=== PATIENT | female | born 1960 | race Caucasian/White ===

== ENCOUNTER → 2018-01-05 14:08 | Outpatient (CLI) | payer MEDICARE, MEDICAID, SELFPAY ==
--- NOTE | 2018-01-05 14:11 | DI.RAD.S_ITS ---
PROCEDURE: XR CHEST 2V INDICATIONS: R/O pulmonary pathology TECHNIQUE: 2 views of the chest were acquired. COMPARISON: [facility], CR, XR CHEST 2 VIEWS, 09/19/2017, 13:42. FINDINGS: Surgical changes and devices: None. Lungs and pleura: No pleural effusions or pneumothorax. Lungs are clear. Mediastinum: Mediastinal contours are normal. Heart size is normal. Bones and chest wall: No suspicious bony abnormalities. Thoracic spondylosis. Soft tissues appear unremarkable. IMPRESSION: No acute cardiopulmonary abnormality Dictated by: Farhan Singh M.D. on 01/05/2018 at 14:53 Approved by: Farhan Singh M.D. on 01/05/2018 at 14:54
== END ==
PROVIDERS: PCP Family Medicine; Visit Provider Physician Assistant
DX: R07.9 Chest pain, unspecified (principal)
CPT/HCPCS: 71046

== ENCOUNTER → 2018-03-16 11:42 | Outpatient (CLI) | payer MEDICARE, MEDICAID, SELFPAY ==
--- NOTE | 2018-03-16 | DI.MG.S_ITS ---
BILATERAL DIGITAL SCREENING MAMMOGRAM 3D/2D WITH CAD: 03/16/2018 CLINICAL: Routine screening. Family history of breast cancer. Comparison is made to exams dated: 01/21/2017 mammogram, 07/25/2015 mammogram, and 07/24/2014 mammogram - [facility]. The tissue of both breasts is heterogeneously dense. This may lower the sensitivity of mammography. Current study was also evaluated with a Computer Aided Detection (CAD) system. No significant masses, calcifications, or other findings are seen in either breast. There has been no significant interval change. IMPRESSION: NEGATIVE There is no mammographic evidence of malignancy. A 1 year screening mammogram is recommended.(03/17/2019) This exam was interpreted at Station ID: [id number]. NOTE: For mammograms, a report in lay terms will be sent to the patient. Approximately 15% of breast malignancies will not be visualized mammographically. In the management of a palpable breast mass, a negative mammogram must not discourage biopsy of a clinically suspicious lesion. Electronically Signed By: Temo vigil/marquita:03/16/2018 17:00:55 letter sent: Normal Exam ACR BI-RADS Category 1: Negative 3341F
== END ==
PROVIDERS: PCP Family Medicine; Visit Provider Family Medicine
DX: Z12.31 Encounter for screening mammogram for malignant neoplasm of breast (principal); Z80.3 Family history of malignant neoplasm of breast
CPT/HCPCS: 77063; 77067

== ENCOUNTER 2018-07-29 11:49 | Emergency (ER) | payer MEDICARE, MEDICAID, SELFPAY ==
[2018-07-29 11:51] VITALS: BP 153/95; PULSE 99; RESP 22; TEMP 36.4; O2SAT 100
--- NOTE | 2018-07-29 12:04 | DI.RAD.S_ITS ---
PROCEDURE: XR CHEST 2V INDICATIONS: pain right side, smoker, wt loss, no trauma ED WR TECHNIQUE: 2 views of the chest were acquired. COMPARISON: Located [facility], CR, XR CHEST 2V, 01/05/2018, 14:12. FINDINGS: Surgical changes and devices: None. Lungs and pleura: Lungs are clear. No pleural effusions or pneumothorax. Mediastinum: Mediastinal contours are normal. Heart size is normal. Bones and chest wall: No suspicious bony abnormalities. Soft tissues appear unremarkable. IMPRESSION: Normal chest. Dictated by: Mita Tipton M.D. on 07/29/2018 at 13:59 Approved by: Mita Tipton M.D. on 07/29/2018 at 13:59
--- NOTE | 2018-07-29 14:51 | ED.CHESTPAIN ---
HPI - Chest Pain <EMERITA Samayoa - Last Filed: 07/29/18 18:11> General Chief Complaint: Chest Pain Stated Complaint: right lung pain for 9 days Time Seen by Provider: 07/29/18 14:34 Source: patient Mode of arrival: ambulatory Limitations: no limitations History of Present Illness HPI narrative: Patient is a on 57-year-old female active smoker who presents with a chief complaint of right lung pain x9 days. She states that her chest hurts where her right ribs meet her sternum when she takes a deep breath and when she is coughing. She has had a productive cough ongoing times 3-4 weeks. She has tried ibuprofen once for the pain in her ribs when she takes a deep breath. She denies any fevers, nausea vomiting or diarrhea. She does take Humira for rheumatoid arthritis. Related Data Home Medications Medication Instructions Recorded Confirmed adalimumab 40 mg/0.8 mL 40 mg SUBCUT Q2W 11/21/17 07/29/18 subcutaneous syringe kit acyclovir [Zovirax] 200 mg PO 5XD PRN 07/29/18 07/29/18 Previous Rx's Medication Instructions Recorded hydrocodone 5 mg-acetaminophen 325 1 tab PO BID PRN #180 tab 03/21/18 mg tablet meclizine 25 mg tablet 25 mg PO TID PRN #30 tab 04/25/18 ibuprofen 800 mg tablet 800 mg PO Q8HP PRN #30 tab 06/12/18 clonazepam 1 mg tablet 1 mg PO DAILY PRN #30 tab 07/17/18 azithromycin See Rx Instructions .ROUTE 07/29/18 .COMPLEX #6 tab Allergies Allergy/AdvReac Type Severity Reaction Status Date / Time codeine AdvReac Mild NAUSEA Verified 07/29/18 11:59 Sulfa (Sulfonamide AdvReac Mild MOUTH SORES Verified 07/29/18 11:59 Antibiotics) magnesium AdvReac sore mouth Verified 07/29/18 11:59 Review of Systems <EMERITA Samayoa - Last Filed: 07/29/18 18:11> Review of Systems GENERAL: Denies chills, fatigue, malaise, fever, sweats. HEENT: Denies sinus pain, ear pain, sore throat, difficulty swallowing, dizziness. RESPIRATORY: See HPI CARDIOVASCULAR: Denies chest pain, palpitations, orthopnea, edema, GASTROINTESTINAL: Denies nausea, vomiting, abdominal pain, diarrhea, constipation, melena. : Denies dysuria, frequency, incontinence, hematuria, urinary retention. MUSCULOSKELETAL: denies weakness, joint pain, or bony pain SKIN: Denies rash, skin lesions, or other NEUROLOGIC: Denies weakness, headache, numbness, change in speech, confusion, seizures, incoordination. PSYCHIATRIC: No concerning psychosocial issues. 12 point review of systems is negative except for those stated above PFSH <EMERITA Samayoa - Last Filed: 07/29/18 18:11> Medical History Herpes genitalis (Chronic) Menometrorrhagia (Chronic) Rheumatoid arthritis (Chronic 2001) Rheumatoid nodule (Chronic) Surgical History Status post breast biopsy (Resolved 2007) Status post delivery (Resolved 1979) Status post delivery (Resolved 1986) Status post delivery (Resolved 1989) Family History Grandmother Rheumatoid arthritis Mother No problems noted. Social History Smoking Status: Current every day smoker alcohol intake: current Social History Smoking Status: Current every day smoker alcohol intake: current Exam <EMERITA Samayoa - Last Filed: 07/29/18 18:11> Narrative Exam Narrative: GENERAL: This is a well-nourished, well-developed patient, in no acute distress HEAD: Atraumatic. Normocephalic. No temporal or scalp tenderness. EYES: Pupils equal round and reactive. Extraocular motions intact. No scleral icterus. No injection or drainage. ENT: Nose without bleeding, purulent drainage or septal hematoma. Throat without erythema, tonsillar hypertrophy or exudate. Uvula midline. Airway patent. NECK: Trachea midline. No JVD or lymphadenopathy. Supple, nontender, no meningeal signs. CARDIOVASCULAR: Regular rate and rhythm without murmurs, gallops, or rubs. Patient has a pain on anterior posterior compression of chest wall. Also has pain on lateral compression chest wall. Patient has pain on palpation of costochondral joints on right side. RESPIRATORY: Clear to auscultation. Breath sounds equal bilaterally. No wheezes, rales, or rhonchi. persistent cough on exam. No accessory muscle use. GASTROINTESTINAL: Abdomen soft, non-tender, nondistended. No hepato-splenomegaly, or palpable masses. No guarding. EXTREMITIES: No clubbing, cyanosis, or edema. No joint tenderness, effusion, or edema noted. BACK: Nontender without deformity or crepitance. No flank tenderness. NEURO: AOx3. SKIN: No rash or erythema. Initial Vital Signs Initial Vital Signs: Vital Signs Temperature 97.6 F 07/29/18 11:51 Pulse Rate 99 H 07/29/18 11:51 Respiratory Rate 22 07/29/18 11:51 Blood Pressure 153/95 H 07/29/18 11:51 Pulse Oximetry 100 07/29/18 11:51 <Dariana Watkins DO - Last Filed: 07/31/18 07:17> Initial Vital Signs Initial Vital Signs: Vital Signs Temperature 97.6 F 07/29/18 11:51 Pulse Rate 99 H 07/29/18 11:51 Respiratory Rate 22 07/29/18 11:51 Blood Pressure 153/95 H 07/29/18 11:51 Pulse Oximetry 100 07/29/18 11:51 Course <EMERITA Samayoa - Last Filed: 07/29/18 18:11> Orders Ordered: Discontinued Medications Ketorolac Tromethamine (Toradol) 60 mg IM NOW ONE Stop: 07/29/18 14:56 Last Admin: 07/29/18 15:11 Dose: 60 mg Vital Signs - 8 hr 07/29/18 11:51 07/29/18 15:02 07/29/18 15:31 Temperature 97.6 F Pulse Rate 99 H 101 H 97 H Respiratory Rate 22 16 16 Blood Pressure 153/95 H Blood Pressure [Left Arm] 119/87 120/74 Pulse Oximetry 100 98 100 <Dariana Watkins DO - Last Filed: 07/31/18 07:17> Orders Ordered: Discontinued Medications Ketorolac Tromethamine (Toradol) 60 mg IM NOW ONE Stop: 07/29/18 14:56 Last Admin: 07/29/18 15:11 Dose: 60 mg Vital Signs - 8 hr 07/29/18 11:51 07/29/18 15:02 07/29/18 15:31 Temperature 97.6 F Pulse Rate 99 H 101 H 97 H Respiratory Rate 22 16 16 Blood Pressure 153/95 H Blood Pressure [Left Arm] 119/87 120/74 Pulse Oximetry 100 98 100 [facility] - Chest Pain <JOSE SamayoaP-BC - Last Filed: 07/29/18 18:11> [facility] Narrative Medical decision making narrative: Patient's pain is consistent with costochondritis As it occurs upon deep breathing and coughing. She has pain on palpation of costochondral joints on right side. Thus I will treat her with NSAIDs at this point time. We discussed the possibility of steroids, but she declined. Given her persistent cough times several weeks combined with her immunocompromised status, I will treat her with azithromycin at this point time. I discussed follow-up with primary care provider. I encouraged smoking cessation. Discussed coming back to the emergency department for any acute concerns. Patient no questions or concerns upon discharge. Discharge Plan Departure Patient Disposition: Home Clinical Impression: Acute costochondritis, Acute lower respiratory tract infection Discharge Date/Time: 07/29/18 16:08 Interventions: ED Discharge Assessment Last Done: 07/29/18 16:08 Instructions: DI for Acute Bronchitis, DI for Costochondritis Activity Restrictions/Additional Instructions: Your pain is consistent with costochondritis. I have given you an injection of Toradol in the emergency department. Please continue to take ibuprofen 800 mg 3 times a day, starting 6 or 8 hr after the injection. Given the length of her cough as well as the fact that you are on humira, I have also given her prescription for an antibiotic for your lung infection. Please follow-up with primary care provider as discussed. Prescriptions: New azithromycin 250 mg tablet See Rx Instructions .ROUTE .COMPLEX Qty: 6 RF: 0 No Action hydrocodone-acetaminophen [Isabel] 5-325 mg tablet 1 tab PO BID PRN (Reason: pain) Qty: 180 RF: 0 meclizine 25 mg tablet 25 mg PO TID PRN (Reason: dizziness) Qty: 30 RF: 0 ibuprofen 800 mg tablet 800 mg PO Q8HP PRN (Reason: fever or pain) Qty: 30 RF: 3 clonazepam [Klonopin] 1 mg tablet 1 mg PO DAILY PRN (Reason: anxiety) Qty: 30 RF: 0 adalimumab [Humira] 40 mg/0.8 mL syringe kit 40 mg SUBCUT Q2W RF: 0 acyclovir [Zovirax] 200 mg capsule 200 mg PO 5XD PRN (Reason: Outbreak) RF: 0 Referrals: Darren Salguero MD [Primary Care Provider] - <Dariana Watkins DO - Last Filed: 07/31/18 07:17> Cosign ED Attending Cosignature Attestation: I was immediately available in the department for consultation. This documentation has been reviewed and I agree with assessment and plan. Supervised by Dariana Watkins DO
[2018-07-29 15:02] VITALS: BP 119/87; PULSE 101; RESP 16; O2SAT 98
[2018-07-29] MEDS: KETOROLAC 60 MG/2 ML VIAL IM (15:11)
[2018-07-29 15:31] VITALS: BP 120/74; PULSE 97; RESP 16; O2SAT 100
== END 2018-07-29 16:08 | disposition home or self-care (01) ==
PROVIDERS: Emergency Provider Nurse Practitioner Family; PCP Student in an Organized Health Care Education/Training Program
DX: M94.0 Chondrocostal junction syndrome [Tietze] (principal); J22 Unspecified acute lower respiratory infection
CPT/HCPCS: 71046; 96372; 99282; 99283; J1885

== ENCOUNTER → 2019-04-23 14:38 | Outpatient (CLI) | payer MEDICARE, MEDICAID, SELFPAY ==
--- NOTE | 2019-04-23 | DI.MG.S_ITS ---
BILATERAL DIGITAL SCREENING MAMMOGRAM 3D/2D WITH CAD: 04/23/2019 CLINICAL: Routine screening. Family history of breast cancer. Comparison is made to exams dated: 03/16/2018 mammogram, 01/21/2017 mammogram, 07/25/2015 mammogram, and 07/24/2014 mammogram - [facility]. The tissue of both breasts is heterogeneously dense. This may lower the sensitivity of mammography. Current study was also evaluated with a Computer Aided Detection (CAD) system. There are benign post operative findings in the right breast. No significant masses, calcifications, or other findings are seen in either breast. There has been no significant interval change. IMPRESSION: There is no mammographic evidence of malignancy. A 1 year screening mammogram is recommended. This exam was interpreted at Station ID: [id number]. NOTE: For mammograms, a report in lay terms will be sent to the patient. Approximately 15% of breast malignancies will not be visualized mammographically. In the management of a palpable breast mass, a negative mammogram must not discourage biopsy of a clinically suspicious lesion. Electronically Signed By: Ahsan whitlock/marquita:04/23/2019 21:32:06 letter sent: Normal Exam ACR BI-RADS Category 2: Benign Finding(s) 3342F
== END ==
PROVIDERS: PCP Student in an Organized Health Care Education/Training Program; Visit Provider Student in an Organized Health Care Education/Training Program
DX: Z12.31 Encounter for screening mammogram for malignant neoplasm of breast (principal); Z80.3 Family history of malignant neoplasm of breast
CPT/HCPCS: 77063; 77067

== ENCOUNTER → 2019-11-16 07:53 | Outpatient (CLI) | payer MEDICARE, MEDICAID, SELFPAY ==
[2019-11-16 09:19] LABS: Add Manual Diff / Slide Review NO; Basophils Absolute Auto 0 /uL (0-100); Basophils Percent Auto 0.5 % (0-2); Eosinophils Absolute Auto 200 /uL (0-450); Eosinophils Percent Auto 3.1 % (2-4); Hematocrit 42.2 % (36-46); Hemoglobin 14.9 g/dL (12.0-16.0); Lymphocytes Absolute Auto 3200 /uL (1100-4500); Lymphocytes Percent Auto 52.5 % (25-40); Mean Corpuscular HGB Conc 35.2 % (30-36); Mean Corpuscular Volume 99.2 fL (80-100); Monocytes Absolute Auto 700 /uL (0-900); Monocytes Percent Auto 10.9 % (3-14); Neutrophils Absolute Auto 2000 /uL (1500-7000); Platelet Count 283 X10^3/uL (150-400); Red Blood Cell Count 4.25 X10^6/uL (4.0-5.2); Red Cell Distribution Width 12.4 % (11.6-14.8); White Blood Cell Count 6.1 X10^3/uL (4.5-11.0)
[2019-11-16 09:43] LABS: Erythrocyte Sedimentation Rate 2 MM/HR (0-20)
[2019-11-16 09:46] LABS: Alanine Aminotransferase 30 IU/L (<35); Albumin 4.7 g/dL (3.5-5.0); Albumin Globulin Ratio 1.6 (1.0-2.8); Alkaline Phosphatase 63 U/L (38-126); Aspartate Aminotransferase 44 IU/L (14-36); BUN Creatinine Ratio 24.3 (6-22); Bilirubin Total 0.7 mg/dL (0.2-1.3); Blood Urea Nitrogen 18 mg/dL (7-17); Calcium 9.5 mg/dL (8.4-10.2); Carbon Dioxide 24 mmol/L (22-32); Chloride 107 mmol/L (98-107); Estimated Glomerular Filt Rate > 60.0 mL/min (>60); Glucose 76 mg/dL (70-100); HEMOLYSIS < 15 (0-50); Potassium 4.7 mmol/L (3.4-5.1); Sodium 138 mmol/L (137-145); Total Protein 7.7 g/dL (6.3-8.2)
[2019-11-16 09:59] LABS: C-Reactive Protein Quant < 0.5 mg/dL (<1.0)
== END ==
PROVIDERS: PCP Student in an Organized Health Care Education/Training Program; Referring Provider Physician Assistant Medical; Visit Provider Physician Assistant Medical
DX: M05.79 Rheumatoid arthritis with rheumatoid factor of multiple sites without organ or systems involvement (principal)
CPT/HCPCS: 36415; 80053; 85025; 85651; 86140

== ENCOUNTER → 2020-01-29 07:50 | Outpatient (CLI) | payer MEDICARE, MEDICAID, SELFPAY ==
[2020-01-29 08:47] LABS: Add Manual Diff / Slide Review NO; Basophils Absolute Auto 0 /uL (0-100); Basophils Percent Auto 0.8 % (0-2); Eosinophils Absolute Auto 200 /uL (0-450); Eosinophils Percent Auto 2.8 % (2-4); Hematocrit 42.2 % (36-46); Hemoglobin 14.4 g/dL (12.0-16.0); Lymphocytes Absolute Auto 2300 /uL (1100-4500); Lymphocytes Percent Auto 40.8 % (25-40); Mean Corpuscular HGB Conc 34.1 % (30-36); Mean Corpuscular Hemoglobin 33.9 PG (26-34); Mean Corpuscular Volume 99.3 fL (80-100); Monocytes Absolute Auto 600 /uL (0-900); Monocytes Percent Auto 10.9 % (3-14); Neutrophils Absolute Auto 2500 /uL (1500-7000); Neutrophils Percent Auto 44.7 % (50-75); Platelet Count 275 X10^3/uL (150-400); Red Blood Cell Count 4.25 X10^6/uL (4.0-5.2); Red Cell Distribution Width 12.7 % (11.6-14.8); White Blood Cell Count 5.5 X10^3/uL (4.5-11.0)
[2020-01-29 08:59] LABS: Erythrocyte Sedimentation Rate 1 MM/HR (0-20)
[2020-01-29 09:06] LABS: Alanine Aminotransferase 23 IU/L (<35); Albumin 4.6 g/dL (3.5-5.0); Albumin Globulin Ratio 1.7 (1.0-2.8); Alkaline Phosphatase 62 U/L (38-126); Aspartate Aminotransferase 30 IU/L (14-36); BUN Creatinine Ratio 14.5 (6-22); Bilirubin Total 0.7 mg/dL (0.2-1.3); Blood Urea Nitrogen 11 mg/dL (7-17); Calcium 9.9 mg/dL (8.4-10.2); Carbon Dioxide 28 mmol/L (22-32); Chloride 106 mmol/L (98-107); Cholesterol 205 mg/dL (140-199); Estimated Glomerular Filt Rate > 60.0 mL/min (>60); Globulin 2.7 g/dL (1.7-4.1); Glucose 84 mg/dL (70-100); HDL Cholesterol 92 mg/dL (40-60); HEMOLYSIS < 15 (0-50); LDL Cholesterol Calculated 83 mg/dL (<100); Potassium 4.3 mmol/L (3.4-5.1); Sodium 140 mmol/L (137-145); Total Protein 7.3 g/dL (6.3-8.2); Triglycerides 152 mg/dL (35-150)
[2020-01-29 09:09] LABS: C-Reactive Protein Quant < 0.5 mg/dL (<1.0)
== END ==
PROVIDERS: PCP Student in an Organized Health Care Education/Training Program; Referring Provider Physician Assistant Medical; Visit Provider Physician Assistant Medical
DX: M05.79 Rheumatoid arthritis with rheumatoid factor of multiple sites without organ or systems involvement (principal); Z79.899 Other long term (current) drug therapy
CPT/HCPCS: 36415; 80053; 80061; 85025; 85651; 86140

== ENCOUNTER → 2020-05-09 16:37 | Outpatient (CLI) | payer MEDICARE, MEDICAID, SELFPAY ==
--- NOTE | 2020-05-09 16:40 | DI.MG.S_ITS ---
BILATERAL DIGITAL SCREENING MAMMOGRAM 3D/2D WITH CAD: 05/09/2020 CLINICAL: Routine screening. Family history of breast cancer. Comparison is made to exams dated: 04/23/2019 mammogram, 03/16/2018 mammogram, and 01/21/2017 mammogram - [facility]. The tissue of both breasts is heterogeneously dense. This may lower the sensitivity of mammography. Current study was also evaluated with a Computer Aided Detection (CAD) system. There is an asymmetry in the right breast posterior depth medial region seen on the craniocaudal view only. No other significant masses, calcifications, or other findings are seen in either breast. IMPRESSION: INCOMPLETE: NEEDS ADDITIONAL IMAGING EVALUATION The asymmetry in the right breast is indeterminate. Additional views with possible ultrasound are recommended. This exam was interpreted at Station ID: [id number]. NOTE: For mammograms, a report in lay terms will be sent to the patient. Approximately 15% of breast malignancies will not be visualized mammographically. In the management of a palpable breast mass, a negative mammogram must not discourage biopsy of a clinically suspicious lesion. Electronically Signed By: Magali ulloa/marquita:05/13/2020 16:26:17 letter sent: Additional Imaging Needed ACR BI-RADS Category 0: Incomplete 3340F
== END ==
PROVIDERS: PCP Student in an Organized Health Care Education/Training Program; Referring Provider Student in an Organized Health Care Education/Training Program; Visit Provider Student in an Organized Health Care Education/Training Program
DX: Z12.31 Encounter for screening mammogram for malignant neoplasm of breast (principal); Z80.3 Family history of malignant neoplasm of breast
CPT/HCPCS: 77063; 77067

== ENCOUNTER → 2020-06-03 14:39 | Outpatient (CLI) | payer MEDICARE, MEDICAID, SELFPAY ==
--- NOTE | 2020-06-03 | DI.MG.S_ITS ---
UNILATERAL RIGHT DIGITAL DIAGNOSTIC MAMMOGRAM 3D/2D WITH ADDITIONAL VIEWS: 06/03/2020 CLINICAL: Additional evaluation requested from prior study. Comparison is made to exams dated: 05/09/2020 mammogram, 04/23/2019 mammogram, and 03/16/2018 mammogram - [facility]. The tissue of right breast is heterogeneously dense. This may lower the sensitivity of mammography. There is a 0.3 cm focal asymmetry in the right breast at 12 o'clock posterior depth. No other significant masses or calcifications are seen in the breast. IMPRESSION: INCOMPLETE: NEEDS ADDITIONAL IMAGING EVALUATION The 0.3 cm focal asymmetry in the right breast is indeterminate. A targeted ultrasound of the right breast is recommended and will be performed immediately following this exam. This exam was interpreted at Station ID: [id number]. NOTE: For mammograms, a report in lay terms will be sent to the patient. Approximately 15% of breast malignancies will not be visualized mammographically. In the management of a palpable breast mass, a negative mammogram must not discourage biopsy of a clinically suspicious lesion. Electronically Signed By: Magali Pelayo M.D. lk/:06/03/2020 15:43:44 ACR BI-RADS Category 0: Incomplete 3340F
--- NOTE | 2020-06-03 14:42 | DI.US.S_ITS ---
LIMITED ULTRASOUND OF RIGHT BREAST AND AXILLA: 06/03/2020 CLINICAL: Patient returns today to evaluate a focal asymmetry in the right breast. Comparison is made to exams dated: 06/03/2020 mammogram, 05/09/2020 mammogram, 04/23/2019 mammogram, 03/16/2018 mammogram, and 01/21/2017 mammogram - [facility]. Ultrasound of the right breast 11-1 o'clock, and axilla regions was performed on the area of interest. There is a 0.4 cm x 0.3 cm x 0.3 cm cyst in the right breast at 12 o'clock posterior depth. This cyst is anechoic. This correlates with mammography findings. IMPRESSION: BENIGN There is no sonographic evidence of malignancy. The 0.4 cm x 0.3 cm x 0.3 cm cyst in the right breast is consistent with a simple cyst and is benign. A 1 year screening mammogram is recommended. This exam was interpreted at Station ID: [id number]. Electronically Signed By: Magali ulloa/:06/03/2020 16:45:24 letter sent: Normal Exam Ultrasound BI-RADS: 2 Benign
== END ==
PROVIDERS: PCP Student in an Organized Health Care Education/Training Program; Referring Provider Student in an Organized Health Care Education/Training Program; Visit Provider Student in an Organized Health Care Education/Training Program
DX: N60.01 Solitary cyst of right breast (principal)
CPT/HCPCS: 76642; 77065; G0279

== ENCOUNTER → 2020-12-04 13:15 | Outpatient (CLI) | payer MEDICARE, MEDICAID, SELFPAY ==
--- NOTE | 2020-12-04 | DI.RAD.S_ITS ---
PROCEDURE: XR CHEST 2V INDICATIONS: Rheumatoid arthritis with rheumatoid factor of multiple site TECHNIQUE: 2 views of the chest were acquired. COMPARISON: [facility], CR, XR CHEST 2V, 07/29/2018, 12:07. [facility], CR, XR CHEST 2V, 01/05/2018, 14:12. FINDINGS: Surgical changes and devices: None. Lungs and pleura: Lungs are clear. No pleural effusions or pneumothorax. Mediastinum: Mediastinal contours are normal. Heart size is normal. Bones and chest wall: No suspicious bony abnormalities. Soft tissues appear unremarkable. IMPRESSION: Normal for age, no sign of pulmonary disease related to rheumatoid arthritis. Dictated by: Duncan Schuster M.D. on 12/04/2020 at 14:50 Approved by: Duncan Schuster M.D. on 12/04/2020 at 14:51
== END ==
PROVIDERS: PCP Student in an Organized Health Care Education/Training Program; Referring Provider Physician Assistant Medical; Visit Provider Physician Assistant Medical
DX: M05.79 Rheumatoid arthritis with rheumatoid factor of multiple sites without organ or systems involvement (principal)
CPT/HCPCS: 71046

== ENCOUNTER → 2020-12-11 16:31 | Outpatient (CLI) | payer MEDICARE, MEDICAID, SELFPAY ==
--- NOTE | 2020-12-11 16:37 | DI.CT.S_ITS ---
PROCEDURE: CT CHEST WO CON INDICATIONS: left rib pain; suspect thoracic radic, but may be LLL issue TECHNIQUE: Noncontrast 5 mm thick sections acquired from the pulmonary apices to the posterior costophrenic angles. 1 mm lung window, 5 mm thick coronal and sagittal and 7 mm axial MIP reformats were then acquired. For radiation dose reduction, the following was used: automated exposure control, adjustment of mA and/or kV according to patient size. COMPARISON: None. FINDINGS: Image quality: Excellent. Lungs and pleura: No acute air space opacities. No pleural effusions or pneumothorax. Central and peripheral airways are patent and normal in caliber. Mediastinum: Heart size is normal. No pericardial effusion. No mediastinal adenopathy by size criteria. Thoracic aorta and central pulmonary arteries are normal in size. Esophagus is normal in caliber. No hiatal hernia. Bones and chest wall: No suspicious bony lesions. No vertebral body compression fractures. No axillary or supraclavicular adenopathy by size criteria. Thyroid gland appears normal where well seen . Abdomen: Visualized upper abdominal solid organs and bowel loops appear normal in the absence of contrast. IMPRESSION: No pneumonia seen, no evidence of pleural effusion or mass. No acute bone or soft tissue lesion is found. Dictated by: Duncan Schuster M.D. on 12/11/2020 at 17:21 Approved by: Duncan Schuster M.D. on 12/11/2020 at 17:23
--- NOTE | 2020-12-11 16:37 | DI.CT.S_ITS ---
PROCEDURE: CT THORACIC SPINE WO CON INDICATIONS: left rib pain; suspect thoracic radic, but may be LLL issue TECHNIQUE: Noncontrast 3 mm thick sections acquired through the region of interest in the thoracic spine. Sagittal and coronal reformats were then constructed. For radiation dose reduction, the following was used: automated exposure control. COMPARISON: None. FINDINGS: Image quality: Excellent. Bones: There is normal overall bony alignment. No acute vertebral body compression fractures. No suspicious sclerotic or lytic bony lesions. Moderate T8-T9 and T9-T10 degenerative disc disease. Mild T1-T2, T2-T3, T3-T4, T4-T5, T5-T6, T6-T7, T7-T8 degenerative disc disease. No central stenosis. No neural foraminal narrowing. No neural compression. Soft tissues: No paravertebral masses or hematomas. Visualized posteromedial lungs appear clear. IMPRESSION: 1. Multilevel degenerative disc disease. 2. No central stenosis. 3. No neural foraminal narrowing. 4. No fracture. No acute osseous lesion. If symptoms and/or clinical suspicion for pathology persists, evaluation with MRI should be considered for further assessment. Dictated by: Chari Pelaez MD, PhD on 12/12/2020 at 11:56 Approved by: Chari Pelaez MD, PhD on 12/12/2020 at 12:00
== END ==
PROVIDERS: PCP Student in an Organized Health Care Education/Training Program; Referring Provider Student in an Organized Health Care Education/Training Program; Visit Provider Student in an Organized Health Care Education/Training Program
DX: R07.81 Pleurodynia (principal)
CPT/HCPCS: 71250; 72128

== ENCOUNTER → 2021-01-12 14:22 | Outpatient (CLI) | payer MEDICARE, SELFPAY ==
[2021-01-12 14:25] LABS: Bacteria Urine None Seen
[2021-01-12 14:49] LABS: Appearance Urine UA SL CLOUDY; Bilirubin Urine UA NEGATIVE (NEGATIVE); Color Urine UA YELLOW; Glucose Urine UA NEGATIVE (Negative); Ketones Urine UA NEGATIVE (NEGATIVE); Leukocyte Esterase Urine UA 2+ (NEGATIVE); Nitrite Urine UA NEGATIVE (Negative); Occult Blood Urine UA 3+ (Negative); Protein Urine UA TRACE (Negative); Specific Gravity Urine UA 1.015 (1.000-1.035); Urobilinogen Urine UA 0.2 E.U./dL (0.2)
[2021-01-12 14:50] LABS: pH Urine UA 5.5 (4.5-8.0)
[2021-01-12 14:53] LABS: Culture Indicated Urine Specimen Cultured; RBC Urine 10-30/HPF (0-5/HPF); Squamous Epithelial Cell Urine 1-5 /HPF (0-5/HPF); WBC Urine 10-30/HPF (0-5/HPF)
== END ==
PROVIDERS: PCP Student in an Organized Health Care Education/Training Program; Referring Provider Student in an Organized Health Care Education/Training Program; Visit Provider Student in an Organized Health Care Education/Training Program
DX: R30.0 Dysuria (principal)
CPT/HCPCS: 81001; 87086

== ENCOUNTER → 2021-01-21 08:34 | Outpatient (CLI) | payer MEDICARE, MEDICAID, SELFPAY ==
--- NOTE | 2021-01-21 08:35 | DI.MRI.S_ITS ---
PROCEDURE: MR THORACIC SPINE WO CON INDICATIONS: Chest and back pain on the left side TECHNIQUE: Noncontrast sagittal T1 spine echo and T2 fast spin echo, sagittal STIR, axial T1 and T2 fast spin echo through the thoracic spine. COMPARISON: [facility], CT, CT THORACIC SPINE WO CON, 12/11/2020, 16:47. FINDINGS: Image quality: Degraded by patient motion artifact. Alignment and Curvature: There is normal bony alignment. Bone Marrow: Large, benign, intraosseous hemangioma noted in the T10 vertebral body. Mild reactive endplate changes noted adjacent to the T6-T7, T7-T8, T8-T9 and T9-T10 discs. No acute vertebral body compression fractures. Spinal Cord: Visualized spinal cord is normal in size and signal. Paraspinous Soft Tissues: No paravertebral masses. Partially visualized cystic lesions in the right lobe of the liver. Miscellaneous: Moderate T6-T7, T7-T8, T8-T9 and T9-T10 degenerative disc disease. Mild T1-T2, T2-T3, T3-T4, T4-T5 and T5-T6 degenerative disc disease. No central stenosis. No neural foraminal narrowing. No neural compression. IMPRESSION: 1. Multilevel degenerative disc disease. 2. No central stenosis. 3. No neural foraminal narrowing. 4. No neural compression. 5. No vertebral body compression fracture. Dictated by: Chari Pelaez MD, PhD on 01/21/2021 at 10:25 Approved by: Chari Pelaez MD, PhD on 01/21/2021 at 10:47
== END ==
PROVIDERS: PCP Student in an Organized Health Care Education/Training Program; Referring Provider Student in an Organized Health Care Education/Training Program; Visit Provider Student in an Organized Health Care Education/Training Program
DX: R07.9 Chest pain, unspecified (principal); M54.9 Dorsalgia, unspecified; M51.34 Other intervertebral disc degeneration, thoracic region
CPT/HCPCS: 72146

== ENCOUNTER 2021-01-23 14:14 | Emergency (ER) | payer MEDICARE, MEDICAID, SELFPAY ==
[2021-01-23] VITALS (10 sets, daily range): BP systolic 134–156; BP diastolic 74–98; PULSE 87–112; RESP 16–20; TEMP 36.6; O2SAT 95–100; BMI 22.8
--- NOTE | 2021-01-23 18:51 | ED.ABDPAIN ---
HPI - Abdominal Pain General Chief Complaint: Abdominal Pain Stated Complaint: LT SIDE PAIN-POSS KIDNEYS-DEHYDRATED/CANT PEE Time Seen by Provider: 01/23/21 18:41 Source: patient Mode of arrival: Ambulatory Limitations: no limitations History of Present Illness HPI narrative: Patient is a 60-year-old female with history of rheumatoid arthritis who presents with a variety of symptoms. She has had chronic left-sided rib pain ongoing since November but seems to be worse over the last 5 days. She has had complete workup including CT and recent MRI which did show multilevel level degenerative disc disease, she currently has a lidocaine patch on her left thoracic side. She says it starts in the back and radiates to the front. She is not sure what happened but since Tuesday her pain is got significantly worse. She has taken Tylenol, Motrin and hydrocodone without any relief. She denies any fever or rash. She says it hurts when she breathes. Also which she was that she feels weak and dehydrated. She says the last couple of days of through the heat wave she has only urinated 2 to 3 times a day. She says she drinks plenty of water and she feels like this is abnormal for her. She denies any dysuria. She previously had a UTI but she is not sure when culture from January 12 which does not show any growth. She is currently also having right lower quadrant his arm pain for the last 5 days. She says it comes and goes. Nonradiating. No nausea or vomiting. She does feel like she has a mild headache. She generally feels weak and like something is wrong. She she knows her body and something is not right. She is not COVID vaccinated. Related Data Previous Rx's Medication Instructions Recorded meclizine 25 mg tablet 25 mg PO TID PRN #30 tab 07/07/20 ibuprofen 800 mg tablet 800 mg PO Q8HP PRN #30 tab 09/15/20 upadacitinib 15 mg tablet,extended 15 mg PO DAILY #90 tab 11/14/20 release 24 hr (Rinvoq) acyclovir 200 mg capsule 200 mg PO 5XD #50 cap 12/11/20 clonazepam 1 mg tablet (Klonopin) 1 mg PO DAILY PRN #30 tab 12/30/20 hydrocodone 5 mg-acetaminophen 325 1 - 2 tab PO DAILY PRN #45 tab 01/05/21 mg tablet Allergies Allergy/AdvReac Type Severity Reaction Status Date / Time gabapentin AdvReac Intermediate sedation Verified 01/23/21 14:46 codeine AdvReac Mild NAUSEA Verified 01/23/21 14:46 Sulfa (Sulfonamide AdvReac Mild MOUTH SORES Verified 01/23/21 14:46 Antibiotics) magnesium AdvReac sore mouth Verified 01/23/21 14:46 Review of Systems Review of Systems ROS Unobtainable: All systems reviewed & are unremarkable except as noted in HPI and below Constitutional Constitutional: Reports body ache(s), Denies chills, Reports fatigue and Reports headache(s) ENT Ears, Nose, Mouth, and Throat: Denies vertigo and Reports headache(s) Cardiovascular Cardiovascular: Reports chest pain (left sided pain) Respiratory Respiratory: Denies cough and Reports pain on inspiration Genitourinary Genitourinary: Reports as per HPI Musculoskeletal Musculoskeletal: Denies back pain Integumentary/Breasts Skin/Breast: Denies rash and Denies skin swelling Neurologic Neurologic: Denies vertigo and Reports headache(s) Endocrine Endocrine: Reports fatigue Patient History Medical History (Updated 01/24/21 @ 01:51 by Irene Rasheed DO) Herpes genitalis Menometrorrhagia Rheumatoid arthritis (2001) Rheumatoid nodule Surgical History Status post breast biopsy (2007) Status post delivery (1979) Status post delivery (1986) Status post delivery (1989) Family History Grandmother Rheumatoid arthritis Mother No problems noted. Social History Smoking Status: Current every day smoker alcohol intake: current Smoking Status: Current every day smoker alcohol intake frequency: a few times a week Alcohol type: beer Substance Use Type: does not use Exam Initial Vital Signs Initial Vital Signs: Vital Signs Temperature 97.8 F 01/23/21 14:46 Pulse Rate 112 H 01/23/21 14:46 Respiratory Rate 16 01/23/21 14:46 Blood Pressure 134/97 H 01/23/21 14:46 Pulse Oximetry 100 01/23/21 14:46 GENERAL: Alert 60-year-old female appears to not feel well HEENT: Head atraumatic,EOMI, pupils reactive, face symmetric, [moist] mucous membranes CARDIOVASCULAR: Regular rate and rhythm without murmurs, rubs or gallops. RESPIRATORY: Breath sounds equal bilaterally, no wheezes rales or rhonchi. Pain on the left side of ribs around T5-T6 no rash tender to touch no paradoxical movement ABDOMEN: Soft, nontender. Normoactive bowel sounds all 4 quadrants. No guarding or rebound. EXTREMITIES: Normal range of motion, no clubbing or edema. Neurovascularly intact NEUROLOGICAL: Alert and oriented x4.Normal gait and speech. SKIN: Warm, dry, no laceration, no petechiae, no rashes or lesions. Course Orders Ordered: ED Orders 01/23/21 18:52 US pelvic complete Stat XR chest 2V Stat 01/23/21 19:15 COVID19 -Nasal swab/Pre-Proc Stat Complete Blood Count AUTO DIFF Stat Comprehensive Metabolic Panel Stat 01/23/21 20:18 CT abdomen pelvis w con Stat Discontinued Medications Sodium Chloride (Normal Saline 0.9%) 1,000 mls @ 1,000 mls/hr IV BOLUS ONE Stop: 01/23/21 20:10 Last Admin: 01/23/21 19:32 Dose: 1,000 mls/hr Documented by: CHELSEY Ketorolac Tromethamine (Ketorolac 30 Mg/Ml Vial) 30 mg IV NOW ONE Stop: 01/23/21 18:53 Last Admin: 01/23/21 19:31 Dose: 30 mg Documented by: CHELSEY Morphine Sulfate (Morphine 4 Mg/Ml Inj) 4 mg IV NOW ONE Stop: 01/23/21 20:19 Last Admin: 01/23/21 20:38 Dose: 4 mg Documented by: CHUY Vital Signs Vital signs: Vital Signs - 8 hr 01/23/21 18:27 01/23/21 18:28 01/23/21 18:30 Temperature 98 F Pulse Rate 93 H 92 H Respiratory Rate 20 Blood Pressure 142/74 H 142/74 H Pulse Oximetry 99 100 01/23/21 19:00 01/23/21 19:35 01/23/21 20:10 Temperature Pulse Rate 96 H 90 96 H Respiratory Rate 20 Blood Pressure 145/75 H Pulse Oximetry 98 96 99 01/23/21 20:38 01/23/21 21:00 01/23/21 21:08 Temperature Pulse Rate 100 H 99 H 95 H Respiratory Rate Blood Pressure 156/98 H Pulse Oximetry 100 95 97 MDM - Abdominal Pain Lab Data Result diagrams: 01/23/21 19:15 01/23/21 19:15 Labs: Lab Results 01/23/21 01/23/21 01/23/21 Range/Units 19:15 19:15 19:15 WBC 4.4 L (4.5-11.0) X10^3/uL RBC 4.06 (4.0-5.2) X10^6/uL Hgb 14.0 (12.0-16.0) g/dL Hct 41.2 (36-46) % MCV 101.6 H (80-100) fL MCH 34.5 H (26-34) PG MCHC 34.0 (30-36) % RDW 13.4 (11.6-14.8) % Plt Count 341 (150-400) X10^3/uL Neut % (Auto) 48.9 L (50-75) % Lymph % (Auto) 39.7 (25-40) % [place] % (Auto) 9.9 (3-14) % Eos % (Auto) 1.1 L (2-4) % Baso % (Auto) 0.4 (0-2) % Neut # (Auto) 2200 (9639-1651) /uL Lymph # (Auto) 1800 (5884-1315) /uL [place] # (Auto) 400 (0-900) /uL Eos # (Auto) 0 (0-450) /uL Baso # (Auto) 0 (0-100) /uL Sodium 139 (137-145) mmol/L Potassium 4.2 (3.4-5.1) mmol/L Chloride 106 (98-107) mmol/L Carbon Dioxide 24 (22-32) mmol/L BUN 17 (7-17) mg/dL Creatinine 0.68 (0.52-1.04) mg/dL Estimated GFR > 60.0 (>60) mL/min BUN/Creatinine Ratio 25.0 H (6-22) Glucose 76 (70-100) mg/dL Calcium 9.6 (8.4-10.2) mg/dL Total Bilirubin 0.7 (0.2-1.3) mg/dL AST 40 H (14-36) IU/L ALT 27 (<35) IU/L Alkaline Phosphatase 60 (38-126) U/L Total Protein 7.5 (6.3-8.2) g/dL Albumin 4.7 (3.5-5.0) g/dL Globulin 2.8 (1.7-4.1) g/dL Albumin/Globulin Ratio 1.7 (1.0-2.8) SARS-CoV-2 (PCR) Negative (Negative) Point of care testing: Urine Dip Bedside Urine Glucose Negative Bedside Urine Bilirubin - Negative Bedside Urine Ketone - Negative Urine Specific [place] 1.015 Bedside Urine Occult Blood +/- Bedside Urine pH 8 Bedside Urine Protein - Negative Bedside Urine Urobilinogen - Negative Bedside Urine Nitrite - Negative Bedside Urine Leukocytes - Negative Esterase Imaging Data US - SALES/MARKETING: Radiologist's Impression: PROCEDURE: US PELVIC COMPLETE INDICATIONS: RIGHT LOWER QUADRANT PAIN TECHNIQUE: Real-time scanning was performed of the pelvic organs, with image documentation. Additional endovaginal scanning was necessary due to incomplete visualization of the adnexal and endometrial structures by transabdominal scanning. COMPARISON: None. FINDINGS: The uterus is normal in size and appearance. Neither ovary is identified/demonstrated. There is no free fluid in the pelvis. Appendix not visualized. IMPRESSION: Ovaries not identified. Appendix not identified. No acute finding. Dictated by: Jesus Alberto Galo M.D. on 01/23/2021 at 19:48 Approved by: Jesus Alberto Galo M.D. on 01/23/2021 at 19:49 CT scan - abdomen/pelvis: Radiologist's Impression: PROCEDURE: CT ABDOMEN PELVIS W CON INDICATIONS: rlq pain us neg TECHNIQUE: After the administration of intravenous contrast, axial sections acquired from the lung bases to the pubic symphysis. Coronal and sagittal reformats were performed. For radiation dose reduction, the following was used: automated exposure control, adjustment of mA and/or kV according to patient size. COMPARISON: None. FINDINGS: Image quality: Excellent. Lung bases: No pleural effusion or airspace opacity. Heart: No pericardial effusion. ABDOMEN: Liver: Multiple hypodensities likely representing cysts. No evidence of solid liver lesion. Mild hepatic steatosis. Gallbladder: Normally distended and unremarkable. Biliary ducts: Nondilated. Pancreas: No peripancreatic inflammatory changes or pancreatic ductal dilatation. Spleen: Normal size and appearance. Adrenal Glands: No adrenal gland nodule or mass. Kidneys and Ureters: No hydronephrosis, hydroureter, or urinary tract calculus Stomach and Bowel: No abnormally dilated or thickened loop of bowel. No pericolonic or mesenteric inflammatory changes. Sigmoid diverticulosis with no findings of diverticulitis. Appendix is normal in appearance. There are no inflammatory changes in the right lower quadrant adjacent to the cecum. Peritoneum: No free fluid or free air. Ventral Wall: No hernias. Abdominal Nodes: No retroperitoneal or mesenteric adenopathy by size criteria. Vessels: Aorta and inferior vena cava are normal in size. PELVIS: Pelvic Organs: Unremarkable. Bladder: Unremarkable. Pelvic Nodes: No enlarged lymph nodes. Miscellaneous: No hernias are seen. Bones: Unremarkable. IMPRESSION: No acute finding to explain symptoms. Uterus and ovaries are unremarkable. Dictated by: Jesus Alberto Galo M.D. on 01/23/2021 at 20:39 MDM Narrative Medical decision making narrative: Patient presents with variety of complaints. She certainly has had this ongoing left-sided pain which has been fully worked up including an MRI degenerative disc disease without stenosis or foraminal narrowing no neural compression it is difficult to tell what is causing her chronic ongoing left-sided pain. She sees rheumatology his primary care provider frequently for this. I have offered her prednisone and gabapentin to help with this however she states she cannot take gabapentin it makes her too loopy and she says prednisone affects her depression and she is not willing to take it. Pain is better after morphine is only slightly better after Toradol. She is also complaining of this sort of dull right lower quadrant pain about seems to be more over her ovaries. Initial ultrasound did not show appendix or ovaries CT was ordered and it did not show any abnormality blood work is overall reassuring. No sign of UTI. She also had vague symptoms of possible dehydration just not feeling right she has an under vaccinated% her COVID fortunately is negative at this time. No evidence of acute dehydration on blood work or urine. And she is able to tolerate p.o. fluids. At this time I really have nothing else to offer her in regards to pain control although she is feeling better now after morphine. Discharge Plan Departure Patient Disposition: Home Clinical Impression: Chronic thoracic back pain Instructions: Thoracic Back Pain Activity Restrictions/Additional Instructions: *You have been diagnosed with chronic thoracic pain *What to do: At this time you had full workup including CT ultrasound and blood work. Unfortunately I do not have any other pain medications to provide you relief. Please follow-up with your primary care provider *Continue to take medications as directed *Follow up with your primary care provider in 2-3 days *Return to ER if you should have fever, redness, any new, worsening or concerning symptoms Prescriptions: No Action meclizine 25 mg tablet 25 mg PO TID PRN (Reason: dizziness) Qty: 30 RF: 5 ibuprofen 800 mg tablet 800 mg PO Q8HP PRN (Reason: fever or pain) Qty: 30 RF: 5 clonazepam [Klonopin] 1 mg tablet 1 mg PO DAILY PRN (Reason: anxiety) Qty: 30 RF: 5 hydrocodone-acetaminophen 5-325 mg tablet 1 - 2 tab PO DAILY PRN (Reason: pain) Qty: 45 RF: 0 Rinvoq 15 mg tablet extended release 24 hr 15 mg PO DAILY Qty: 90 RF: 0 acyclovir 200 mg capsule 200 mg PO 5XD Qty: 50 RF: 1 Referrals: Darren Salguero MD [Primary Care Provider] -
--- NOTE | 2021-01-23 18:52 | DI.RAD.S_ITS ---
PROCEDURE: XR CHEST 2V INDICATIONS: left sided pain TECHNIQUE: 2 views of the chest were acquired. COMPARISON: [facility], CR, XR CHEST 2V, 12/04/2020, 13:32. [facility], CT, CT CHEST WO CON, 12/11/2020, 16:47. FINDINGS: Surgical changes and devices: None. Lungs and pleura: Lungs are clear. No pleural effusions or pneumothorax. Mediastinum: Mediastinal contours are normal. Heart size is normal. Bones and chest wall: No suspicious bony abnormalities. Soft tissues appear unremarkable. IMPRESSION: No acute finding or imaging finding to explain pain. A recent (12/11/2020) CT chest was performed for the same indication, with no abnormality on that exam to explain left-sided chest wall pain. Dictated by: Jesus Alberto Galo M.D. on 01/23/2021 at 20:18 Approved by: Jesus Alberto Galo M.D. on 01/23/2021 at 20:20
[2021-01-23 19:29] LABS: Add Manual Diff / Slide Review NO; Basophils Absolute Auto 0 /uL (0-100); Basophils Percent Auto 0.4 % (0-2); Eosinophils Absolute Auto 0 /uL (0-450); Eosinophils Percent Auto 1.1 % (2-4); Hematocrit 41.2 % (36-46); Lymphocytes Absolute Auto 1800 /uL (1100-4500); Lymphocytes Percent Auto 39.7 % (25-40); Mean Corpuscular Hemoglobin 34.5 PG (26-34); Mean Corpuscular Volume 101.6 fL (80-100); Monocytes Absolute Auto 400 /uL (0-900); Monocytes Percent Auto 9.9 % (3-14); Neutrophils Absolute Auto 2200 /uL (1500-7000); Neutrophils Percent Auto 48.9 % (50-75); Platelet Count 341 X10^3/uL (150-400); Red Blood Cell Count 4.06 X10^6/uL (4.0-5.2); Red Cell Distribution Width 13.4 % (11.6-14.8); White Blood Cell Count 4.4 X10^3/uL (4.5-11.0)
[2021-01-23] MEDS: KETOROLAC 30 MG/ML VIAL IV (19:31)
[2021-01-23] MEDS: SODIUM CHLORIDE 0.9% 1,000 ML 1000 ML IV (19:32)
[2021-01-23 19:48] LABS: Alanine Aminotransferase 27 IU/L (<35); Albumin 4.7 g/dL (3.5-5.0); Albumin Globulin Ratio 1.7 (1.0-2.8); Alkaline Phosphatase 60 U/L (38-126); Aspartate Aminotransferase 40 IU/L (14-36); Bilirubin Total 0.7 mg/dL (0.2-1.3); Blood Urea Nitrogen 17 mg/dL (7-17); Calcium 9.6 mg/dL (8.4-10.2); Carbon Dioxide 24 mmol/L (22-32); Chloride 106 mmol/L (98-107); Estimated Glomerular Filt Rate > 60.0 mL/min (>60); Globulin 2.8 g/dL (1.7-4.1); Glucose 76 mg/dL (70-100); HEMOLYSIS < 15 (0-50); Potassium 4.2 mmol/L (3.4-5.1); Sodium 139 mmol/L (137-145); Total Protein 7.5 g/dL (6.3-8.2)
[2021-01-23 19:49] LABS: COVID19 -Nasal RAPID Negative (Negative)
--- NOTE | 2021-01-23 20:18 | DI.CT.S_ITS ---
PROCEDURE: CT ABDOMEN PELVIS W CON INDICATIONS: rlq pain us neg TECHNIQUE: After the administration of intravenous contrast, axial sections acquired from the lung bases to the pubic symphysis. Coronal and sagittal reformats were performed. For radiation dose reduction, the following was used: automated exposure control, adjustment of mA and/or kV according to patient size. COMPARISON: None. FINDINGS: Image quality: Excellent. Lung bases: No pleural effusion or airspace opacity. Heart: No pericardial effusion. ABDOMEN: Liver: Multiple hypodensities likely representing cysts. No evidence of solid liver lesion. Mild hepatic steatosis. Gallbladder: Normally distended and unremarkable. Biliary ducts: Nondilated. Pancreas: No peripancreatic inflammatory changes or pancreatic ductal dilatation. Spleen: Normal size and appearance. Adrenal Glands: No adrenal gland nodule or mass. Kidneys and Ureters: No hydronephrosis, hydroureter, or urinary tract calculus Stomach and Bowel: No abnormally dilated or thickened loop of bowel. No pericolonic or mesenteric inflammatory changes. Sigmoid diverticulosis with no findings of diverticulitis. Appendix is normal in appearance. There are no inflammatory changes in the right lower quadrant adjacent to the cecum. Peritoneum: No free fluid or free air. Ventral Wall: No hernias. Abdominal Nodes: No retroperitoneal or mesenteric adenopathy by size criteria. Vessels: Aorta and inferior vena cava are normal in size. PELVIS: Pelvic Organs: Unremarkable. Bladder: Unremarkable. Pelvic Nodes: No enlarged lymph nodes. Miscellaneous: No hernias are seen. Bones: Unremarkable. IMPRESSION: No acute finding to explain symptoms. Uterus and ovaries are unremarkable. Dictated by: Jesus Alberto Glao M.D. on 01/23/2021 at 20:39 Approved by: Jesus Alberto Galo M.D. on 01/23/2021 at 20:44
[2021-01-23] MEDS: MORPHINE 4 MG/ML INJ IV (20:38)
--- NOTE | 2021-01-30 14:05 | PC.NURSE ---
late entry- IV fluids DC'd at 2030 when IV DC'd per RN
== END 2021-01-23 21:23 | disposition home or self-care (01) ==
PROVIDERS: Emergency Provider Emergency Medicine; PCP Student in an Organized Health Care Education/Training Program
DX: M54.6 Pain in thoracic spine (principal); R07.9 Chest pain, unspecified; R10.31 Right lower quadrant pain; R51.9 Headache, unspecified; R53.83 Other fatigue; Z20.822 Contact with and (suspected) exposure to COVID-19
CPT/HCPCS: 36415; 71046; 74177; 76830; 76856; 80053; 81003; 85025; 87635; 96361; 96374; 96375; 99284; C9803; J1885; J2270; Q9967

== ENCOUNTER 2021-04-23 06:42 | Emergency (ER) | payer MEDICARE, MEDICAID, SELFPAY ==
[2021-04-23 07:37] VITALS: BP 143/84; PULSE 92; RESP 19; TEMP 36.3; O2SAT 99; BMI 23.1
--- NOTE | 2021-04-23 07:48 | ED_ITS ---
HPI - Back Pain/Injury General Chief Complaint: Back Pain/Injury Stated Complaint: Rt side rib/back pain x 2days Time Seen by Provider: 04/23/21 06:50 Source: patient Limitations: no limitations History of Present Illness HPI Narrative: Patient is a 60-year-old female who has history chronic ongoing back pain, rheumatoid arthritis presenting today with sudden onset of right- sided thoracic pain wrapping around to her chest and right upper quadrant. She is quite uncomfortable. She says this is different from her previous pain. She took some oxycodone but it did not seem to help. She denies nausea or vomiting. Does seem to hurt when she moves. Pain seems to radiate to her epigastric region. In January she had an MRI of her thoracic spine which show multi level degenerative disc disease. At the time she also had a CT of her abdomen and pelvis for some right lower quadrant pain which was unremarkable. Pain is typically on the left not on the right. She denies any flank pain or groin pain. Related Data Previous Rx's Medication Instructions Recorded meclizine 25 mg tablet 25 mg PO TID PRN #30 tab 07/07/20 ibuprofen 800 mg tablet 800 mg PO Q8HP PRN #30 tab 09/15/20 upadacitinib 15 mg tablet,extended 15 mg PO DAILY #90 tab 11/14/20 release 24 hr (Rinvoq) acyclovir 200 mg capsule 200 mg PO 5XD #50 cap 12/11/20 clonazepam 1 mg tablet (Klonopin) 1 mg PO DAILY PRN #30 tab 12/30/20 hydrocodone 5 mg-acetaminophen 325 1 - 2 tab PO DAILY PRN #45 tab 04/09/21 mg tablet methocarbamol 750 mg tablet 750 mg PO Q8H PRN #14 tab 04/23/21 Allergies Allergy/AdvReac Type Severity Reaction Status Date / Time gabapentin AdvReac Intermediate sedation Verified 01/23/21 14:46 codeine AdvReac Mild NAUSEA Verified 01/23/21 14:46 Sulfa (Sulfonamide AdvReac Mild MOUTH SORES Verified 01/23/21 14:46 Antibiotics) magnesium AdvReac sore mouth Verified 01/23/21 14:46 Review of Systems Review of Systems Narrative: GENERAL: Denies chills, fatigue, malaise, fever, sweats, travel HEENT: Denies sinus pain, ear pain, sore throat, difficulty swallowing, neck pain RESPIRATORY: Denies dyspnea, cough, wheezing, hemoptysis, sputum. CARDIOVASCULAR: Right-sided chest pain, see HPI GASTROINTESTINAL: Right upper quadrant pain, see HPI Denies nausea, vomiting, diarrhea, constipation, melena. : Denies dysuria, frequency, incontinence, hematuria, urinary retention, flank pain. MUSCULOSKELETAL: Back pain, see HPI SKIN: No rash, no erythema, no pruritus NEUROLOGIC: Denies weakness, dizziness, headache, numbness, change in speech, confusion PSYCHIATRIC: No concerning psychosocial issues. 12 point review of systems is negative except for those stated above and HPI Patient History Medical History (Updated 04/23/21 @ 10:49 by Irene Rasheed DO) Herpes genitalis Menometrorrhagia Rheumatoid arthritis (2001) Rheumatoid nodule Surgical History Status post breast biopsy (2007) Status post delivery (1979) Status post delivery (1986) Status post delivery (1989) Family History Grandmother Rheumatoid arthritis Mother No problems noted. Social History Smoking Status: Current every day smoker alcohol intake: current Smoking Status: Current every day smoker alcohol intake frequency: a few times a week Alcohol type: beer Substance Use Type: does not use Exam Initial Vital Signs Initial Vital Signs: Vital Signs Temperature 97.4 F L 04/23/21 07:37 Pulse Rate 92 H 04/23/21 07:37 Respiratory Rate 19 04/23/21 07:37 Blood Pressure 143/84 H 04/23/21 07:37 Pulse Oximetry 99 04/23/21 07:37 GENERAL: 60-year-old female appears uncomfortable standing in room HEENT: Head atraumatic,EOMI, pupils reactive, face symmetric, moist mucous membranes CARDIOVASCULAR: Regular rate and rhythm without murmurs, rubs or gallops. RESPIRATORY: Breath sounds equal bilaterally, no wheezes rales or rhonchi. ABDOMEN: Soft, minimal right upper quadrant pain negative Don sign no guarding or rebound : No CVA tenderness EXTREMITIES: Normal range of motion, no clubbing or edema. Neurovascularly intact NEUROLOGICAL: Alert and oriented x4.Normal gait and speech. SKIN: Warm, dry, no laceration, no petechiae, no rashes or lesions. Course Orders Ordered: ED Orders 04/23/21 07:56 US abdomen limited Stat XR chest 2V Stat 04/23/21 07:59 Complete Blood Count AUTO DIFF Stat Comprehensive Metabolic Panel Stat Lipase Stat Troponin & CK Cardiac Panel Stat 04/23/21 08:00 EKG-12 Lead Stat 04/23/21 09:52 Urine Microscopic Stat 04/23/21 10:02 CT angio chest abdomen pelvis Stat Discontinued Medications Hydromorphone HCl (Hydromorphone 1 Mg Inj) 1 mg IV NOW ONE Stop: 04/23/21 09:20 Last Admin: 04/23/21 09:36 Dose: 1 mg Documented by: PAULA Ketorolac Tromethamine (Ketorolac 30 Mg/Ml Vial) 15 mg IV NOW ONE Stop: 04/23/21 07:57 Last Admin: 04/23/21 08:08 Dose: 15 mg Documented by: PAULA Vital Signs Vital signs: Vital Signs - 8 hr 04/23/21 10:54 Pulse Rate 83 Respiratory Rate 12 Blood Pressure 135/70 Pulse Oximetry 99 MDM - Back Pain/Injury Lab Data Result diagrams: 04/23/21 07:59 04/23/21 07:59 Labs: Lab Results 04/23/21 04/23/21 04/23/21 Range/Units 07:59 07:59 09:52 WBC 5.4 (4.5-11.0) X10^3/uL RBC 4.14 (4.0-5.2) X10^6/uL Hgb 14.3 (12.0-16.0) g/dL Hct 41.8 (36-46) % MCV 100.8 H (80-100) fL MCH 34.4 H (26-34) PG MCHC 34.2 (30-36) % RDW 12.2 (11.6-14.8) % Plt Count 382 (150-400) X10^3/uL Neut % (Auto) 73.3 (50-75) % Lymph % (Auto) 16.8 L (25-40) % [place] % (Auto) 9.2 (3-14) % Eos % (Auto) 0.4 L (2-4) % Baso % (Auto) 0.3 (0-2) % Neut # (Auto) 3900 (4385-9781) /uL Lymph # (Auto) 900 L (6708-9750) /uL [place] # (Auto) 500 (0-900) /uL Eos # (Auto) 0 (0-450) /uL Baso # (Auto) 0 (0-100) /uL Sodium 138 (137-145) mmol/L Potassium 3.7 (3.4-5.1) mmol/L Chloride 103 (98-107) mmol/L Carbon Dioxide 27 (22-32) mmol/L BUN 7 (7-17) mg/dL Creatinine 0.70 (0.52-1.04) mg/dL Estimated GFR > 60.0 (>60) mL/min BUN/Creatinine Ratio 10.0 (6-22) Glucose 92 (70-100) mg/dL Calcium 9.6 (8.4-10.2) mg/dL Total Bilirubin 0.7 (0.2-1.3) mg/dL AST 37 H (14-36) IU/L ALT 27 (<35) IU/L Alkaline Phosphatase 66 (38-126) U/L Total Creatine Kinase 119 (30-135) U/L CK-MB (CK-2) 0.53 (<2.37) ng/mL CK-MB (CK-2) Rel Index 0.4 L (1.5-5.0) % Troponin I < 0.012 (0.01-0.034) ng/mL Total Protein 7.8 (6.3-8.2) g/dL Albumin 5.0 (3.5-5.0) g/dL Globulin 2.8 (1.7-4.1) g/dL Albumin/Globulin Ratio 1.8 (1.0-2.8) Lipase 129 (23-300) U/L Urine RBC 1-5/hpf D (0-5/HPF) Urine WBC 0-1/hpf (0-5/HPF) Ur Squamous Epith Cells 0-1 /hpf (0-5/HPF) Urine Bacteria Few (2-10) H (None) Ur Culture Indicated? Cult not indicated Urine Dip Bedside Urine Glucose Negative Bedside Urine Bilirubin - Negative Bedside Urine Ketone + 15 Urine Specific [place] 1.015 Bedside Urine Occult Blood ++ Bedside Urine pH 7.0 Bedside Urine Protein - Negative Bedside Urine Urobilinogen - Negative Bedside Urine Nitrite - Negative Bedside Urine Leukocytes - Negative Esterase Imaging Data Chest x-ray: Radiologist's Impression: PROCEDURE:? XR CHEST 2V ? INDICATIONS:? right sided pain ? TECHNIQUE:? 2 views of the chest were acquired.? ? COMPARISON:? [facility], CR, XR CHEST 2V, 01/23/2021, 19:11. ? FINDINGS:? ? Surgical changes and devices:? None.? ? Lungs and pleura:? Lungs are clear.? No pleural effusions or pneumothorax.? ? Mediastinum:? Mediastinal contours are normal.? Heart size is normal.? ? Bones and chest wall:? Chronic left rib fractures. ? IMPRESSION:? No acute disease. ? ? Dictated by: Scott Steinberg M.D. on 04/23/2021 at 8:12 ? ? US - abdomen: Radiologist's Impression: PROCEDURE: US ABDOMEN LIMITED ? INDICATIONS:? RIGHT UPPER QUADRANT PAIN ? TECHNIQUE:? Real-time focused scanning was performed of the abdomen, with image documentation.? ? COMPARISON:? [facility], CT, CT ABDOMEN PELVIS W CON, 01/23/2021, 20:22. ? FINDINGS:? Given body habitus, suboptimal visualization of the pancreas.? No right upper quadrant fluid collections. ? The liver is normal size and contour with a smooth margin.? There are known cysts in both right and left hepatic lobes.? Left lobe cyst measures 1.9 cm.? The largest right lobe cyst measures 1.9 cm. The gallbladder is normal without stones, sludge, wall thickening, or pericholecystic fluid.? Proximal common duct is normal caliber at 3 mm. Distal common duct is not well seen due to lack of good acoustic window. ? The few images given of the right kidney demonstrate no hydronephrosis. ? IMPRESSION:? 1. Normal gallbladder and visible biliary tree. 2. Known hepatic cysts. 3. Suboptimal visualization of the pancreas. ? ? Dictated by: Mita Tipton M.D. on 04/23/2021 at 8:34 ? ? ct angio chest ab pelvis: Radiologist's Impression: PROCEDURE:? CT ANGIO CHEST ABDOMEN PELVIS ? INDICATIONS:? right sided chest pain radiating to abd ? TECHNIQUE:? Precontrast 5 mm thick sections acquired from the lung apices to the iliac crests.? After the administration of intravenous contrast, 2.5 mm thick sections again acquired from the lung apices to the iliac crests.? Maximum intensity projection (MIP) oblique sagittal and coronal reformats were then acquired.? For radiation dose reduction, the following was used:? automated exposure control.? ? COMPARISON:? None. ? FINDINGS: ? Chest: ? Cardiovascular:? Heart size is normal.? No evidence of pulmonary embolism, aortic aneurysm or dissection. ? Lungs and pleural spaces:? The lung bethea are clear without nodule, infiltrate or interstitial prominence.? Pleural spaces show no effusion or pneumothorax.? Biapical pulmonary emphysema noted. ? Lymph nodes:? No mediastinal, hilar or axillary adenopathy. ? Mediastinum:? Unremarkable.? No hiatal hernia.? Thyroid within normal limits. ? Chest Wall and Bones:? Old healed left-sided rib fractures.? Mild degenerative disc disease in the midthoracic spine.? No fracture or malalignment. ? Abdomen and Pelvis: ? Liver:? Normal in size and attenuation. No contour deformity present.? Simple appearing hepatic cysts measure up to 2.2 cm in the right hepatic lobe Biliary system:? No calcified cholelithiasis or pericholecystic inflammation.? No intra or extrahepatic bile duct dilatation. ? Pancreas:? Unremarkable without mass or inflammation evident. ? Spleen:? Normal in size and density. ? Adrenals:? Normal morphology and density. ? Reproductive system:? Unremarkable as visualized. ? Urinary system:? Normal renal size and attenuation. No renal calculi, hydronephrosis, or solid mass present.? Urinary bladder unremarkable. ? Gastrointestinal system:? The bowel is unremarkable with no evidence of bowel obstruction or inflammation. The stomach appears unremarkable.? No findings to suggest acute appendicitis. ? Lymph nodes:? No mesenteric or retroperitoneal adenopathy. ? Peritoneal spaces: ? No free air. No free fluid.? ? Vasculature:? The IVC, aorta and iliac vasculature are unremarkable. ? Abdominal wall:? Abdominal wall intact without evidence of ventral or inguinal hernias. ? Musculoskeletal:? Normal bone mineralization.? Degenerative disc disease and arthropathy noted in lower lumbar spine.? No acute fractures.? ? IMPRESSION: ? 1.? Unremarkable CT angiogram without evidence of aortic dissection or aneurysm.? No pulmonary embolism present. ? 2. Mild degenerative disc disease in the mid thoracic and lower lumbar spine ? 3. Mild to moderate biapical pulmonary emphysema and old healed left-sided rib fractures. ? Approved by: Keshawn Katz M.D. on 04/23/2021 at 9:25? ECG Data Interpretation: Normal sinus rhythm rate 71 TX interval 150 QRS 74 QTC 397 similar to prior MDM Narrative Medical decision making narrative: Patient has chronic ongoing back pain however this is atypical for her on the right side radiating around in her chest. She really does not have any flank pain urine shows some mild hematuria. She has no radiation into her abdomen or groin. Minimal right upper quadrant pain with a negative ultrasound and normal blood work. Possible kidney stone although I really think this is unlikely it is not on the right place. Her pain is not controlled with Toradol she continues to be in significant pain and unable to find position comfort. Patient is finally laying down and is comfortable. CT angio was negative for any dissection kidney stone or pulmonary embolism. This is likely musculoskeletal exacerbation of acute on chronic pain. She does not like taking gabapentin she has narcotic medications home. Requesting muscle spasm medication. Will try methocarbamol. Discharge Plan Departure Patient Disposition: Home Clinical Impression: Acute costochondritis Instructions: DI for Costochondritis Activity Restrictions/Additional Instructions: *You have been diagnosed with costochondritis *What to do: Blood work and imaging today are overall reassuring. Think this is a strain of your back or ribs. *Continue to take medications as directed Methocarbamol 750 mg every 8 hours only if needed for muscle spasm. This can cause drowsiness and dizziness--> SENT TO [facility] *Follow up with your primary care provider in 2-3 days *Return to ER if you should have increasing pain fever weakness shortness of breath or any new, worsening or concerning symptoms Prescriptions: New methocarbamol 750 mg tablet 750 mg PO Q8H PRN (Reason: muscle spasm) Qty: 14 RF: 0 No Action meclizine 25 mg tablet 25 mg PO TID PRN (Reason: dizziness) Qty: 30 RF: 5 ibuprofen 800 mg tablet 800 mg PO Q8HP PRN (Reason: fever or pain) Qty: 30 RF: 5 clonazepam [Klonopin] 1 mg tablet 1 mg PO DAILY PRN (Reason: anxiety) Qty: 30 RF: 5 hydrocodone-acetaminophen 5-325 mg tablet 1 - 2 tab PO DAILY PRN (Reason: pain) Qty: 45 RF: 0 Rinvoq 15 mg tablet extended release 24 hr 15 mg PO DAILY Qty: 90 RF: 0 acyclovir 200 mg capsule 200 mg PO 5XD Qty: 50 RF: 1 Referrals: Darren Salguero MD [Primary Care Provider] -
--- NOTE | 2021-04-23 07:56 | DI.US.S_ITS ---
PROCEDURE: US ABDOMEN LIMITED INDICATIONS: RIGHT UPPER QUADRANT PAIN TECHNIQUE: Real-time focused scanning was performed of the abdomen, with image documentation. COMPARISON: [facility], CT, CT ABDOMEN PELVIS W CON, 01/23/2021, 20:22. FINDINGS: Given body habitus, suboptimal visualization of the pancreas. No right upper quadrant fluid collections. The liver is normal size and contour with a smooth margin. There are known cysts in both right and left hepatic lobes. Left lobe cyst measures 1.9 cm. The largest right lobe cyst measures 1.9 cm. The gallbladder is normal without stones, sludge, wall thickening, or pericholecystic fluid. Proximal common duct is normal caliber at 3 mm. Distal common duct is not well seen due to lack of good acoustic window. The few images given of the right kidney demonstrate no hydronephrosis. IMPRESSION: 1. Normal gallbladder and visible biliary tree. 2. Known hepatic cysts. 3. Suboptimal visualization of the pancreas. Dictated by: Mita Tipton M.D. on 04/23/2021 at 8:34 Approved by: Mita Tipton M.D. on 04/23/2021 at 8:38
--- NOTE | 2021-04-23 07:56 | DI.RAD.S_ITS ---
PROCEDURE: XR CHEST 2V INDICATIONS: right sided pain TECHNIQUE: 2 views of the chest were acquired. COMPARISON: [facility], CR, XR CHEST 2V, 01/23/2021, 19:11. FINDINGS: Surgical changes and devices: None. Lungs and pleura: Lungs are clear. No pleural effusions or pneumothorax. Mediastinum: Mediastinal contours are normal. Heart size is normal. Bones and chest wall: Chronic left rib fractures. IMPRESSION: No acute disease. Dictated by: Scott Steinberg M.D. on 04/23/2021 at 8:12 Approved by: Scott Steinberg M.D. on 04/23/2021 at 8:14
[2021-04-23] MEDS: KETOROLAC 30 MG/ML VIAL 15 MG IV (08:08)
[2021-04-23 08:21] LABS: Add Manual Diff / Slide Review NO; Basophils Absolute Auto 0 /uL (0-100); Basophils Percent Auto 0.3 % (0-2); Eosinophils Absolute Auto 0 /uL (0-450); Eosinophils Percent Auto 0.4 % (2-4); Hematocrit 41.8 % (36-46); Hemoglobin 14.3 g/dL (12.0-16.0); Lymphocytes Absolute Auto 900 /uL (1100-4500); Lymphocytes Percent Auto 16.8 % (25-40); Mean Corpuscular HGB Conc 34.2 % (30-36); Mean Corpuscular Hemoglobin 34.4 PG (26-34); Mean Corpuscular Volume 100.8 fL (80-100); Monocytes Absolute Auto 500 /uL (0-900); Monocytes Percent Auto 9.2 % (3-14); Neutrophils Absolute Auto 3900 /uL (1500-7000); Neutrophils Percent Auto 73.3 % (50-75); Platelet Count 382 X10^3/uL (150-400); Red Blood Cell Count 4.14 X10^6/uL (4.0-5.2); Red Cell Distribution Width 12.2 % (11.6-14.8); White Blood Cell Count 5.4 X10^3/uL (4.5-11.0)
[2021-04-23 08:32] LABS: Alanine Aminotransferase 27 IU/L (<35); Albumin Globulin Ratio 1.8 (1.0-2.8); Alkaline Phosphatase 66 U/L (38-126); Aspartate Aminotransferase 37 IU/L (14-36); Bilirubin Total 0.7 mg/dL (0.2-1.3); Blood Urea Nitrogen 7 mg/dL (7-17); Calcium 9.6 mg/dL (8.4-10.2); Carbon Dioxide 27 mmol/L (22-32); Chloride 103 mmol/L (98-107); Creatine Kinase 119 U/L (30-135); Estimated Glomerular Filt Rate > 60.0 mL/min (>60); Globulin 2.8 g/dL (1.7-4.1); Glucose 92 mg/dL (70-100); HEMOLYSIS < 15 (0-50); Lipase 129 U/L (23-300); Potassium 3.7 mmol/L (3.4-5.1); Sodium 138 mmol/L (137-145); Total Protein 7.8 g/dL (6.3-8.2)
[2021-04-23 08:44] LABS: Troponin I < 0.012 ng/mL (0.01-0.034)
[2021-04-23 08:48] LABS: CKMB % Relative Index 0.4 % (1.5-5.0); Creatine Kinase MB 0.53 ng/mL (<2.37)
[2021-04-23] MEDS: HYDROMORPHONE 1 MG INJ IV (09:36)
--- NOTE | 2021-04-23 10:02 | DI.CT.S_ITS ---
PROCEDURE: CT ANGIO CHEST ABDOMEN PELVIS INDICATIONS: right sided chest pain radiating to abd TECHNIQUE: Precontrast 5 mm thick sections acquired from the lung apices to the iliac crests. After the administration of intravenous contrast, 2.5 mm thick sections again acquired from the lung apices to the iliac crests. Maximum intensity projection (MIP) oblique sagittal and coronal reformats were then acquired. For radiation dose reduction, the following was used: automated exposure control. COMPARISON: None. FINDINGS: Chest: Cardiovascular: Heart size is normal. No evidence of pulmonary embolism, aortic aneurysm or dissection. Lungs and pleural spaces: The lung bethea are clear without nodule, infiltrate or interstitial prominence. Pleural spaces show no effusion or pneumothorax. Biapical pulmonary emphysema noted. Lymph nodes: No mediastinal, hilar or axillary adenopathy. Mediastinum: Unremarkable. No hiatal hernia. Thyroid within normal limits. Chest Wall and Bones: Old healed left-sided rib fractures. Mild degenerative disc disease in the midthoracic spine. No fracture or malalignment. Abdomen and Pelvis: Liver: Normal in size and attenuation. No contour deformity present. Simple appearing hepatic cysts measure up to 2.2 cm in the right hepatic lobe Biliary system: No calcified cholelithiasis or pericholecystic inflammation. No intra or extrahepatic bile duct dilatation. Pancreas: Unremarkable without mass or inflammation evident. Spleen: Normal in size and density. Adrenals: Normal morphology and density. Reproductive system: Unremarkable as visualized. Urinary system: Normal renal size and attenuation. No renal calculi, hydronephrosis, or solid mass present. Urinary bladder unremarkable. Gastrointestinal system: The bowel is unremarkable with no evidence of bowel obstruction or inflammation. The stomach appears unremarkable. No findings to suggest acute appendicitis. Lymph nodes: No mesenteric or retroperitoneal adenopathy. Peritoneal spaces: No free air. No free fluid. Vasculature: The IVC, aorta and iliac vasculature are unremarkable. Abdominal wall: Abdominal wall intact without evidence of ventral or inguinal hernias. Musculoskeletal: Normal bone mineralization. Degenerative disc disease and arthropathy noted in lower lumbar spine. No acute fractures. IMPRESSION: 1. Unremarkable CT angiogram without evidence of aortic dissection or aneurysm. No pulmonary embolism present. 2. Mild degenerative disc disease in the mid thoracic and lower lumbar spine 3. Mild to moderate biapical pulmonary emphysema and old healed left-sided rib fractures. Approved by: Keshawn Katz M.D. on 04/23/2021 at 9:25
[2021-04-23 10:32] LABS: Bacteria Urine Few (2-10); Culture Indicated Urine Cult Not Indicated; RBC Urine 1-5/HPF (0-5/HPF); Squamous Epithelial Cell Urine 0-1 /HPF (0-5/HPF); WBC Urine 0-1/HPF (0-5/HPF)
[2021-04-23 10:54] VITALS: BP 135/70; PULSE 83; RESP 12; O2SAT 99
== END 2021-04-23 10:58 | disposition home or self-care (01) ==
PROVIDERS: Emergency Provider Emergency Medicine; PCP Student in an Organized Health Care Education/Training Program
DX: M94.0 Chondrocostal junction syndrome [Tietze] (principal); R31.9 Hematuria, unspecified
CPT/HCPCS: 36415; 71046; 71275; 74174; 76705; 80053; 81003; 81015; 82550; 82553; 83690; 84484; 85025; 93005; 93010; 96374; 96375; 99284; 99285; J1170; J1885

== ENCOUNTER → 2021-10-14 12:45 | Outpatient (CLI) | payer MEDICARE, MEDICAID, SELFPAY ==
--- NOTE | 2021-10-14 12:46 | DI.MG.S_ITS ---
BILATERAL DIGITAL SCREENING MAMMOGRAM 3D/2D WITH CAD: 10/14/2021 CLINICAL: Routine screening. Comparison is made to exams dated: 05/09/2020 mammogram, 04/23/2019 mammogram, and 03/16/2018 mammogram - [facility]. The tissue of both breasts is heterogeneously dense. This may lower the sensitivity of mammography. Current study was also evaluated with a Computer Aided Detection (CAD) system. No significant masses, calcifications, or other findings are seen in either breast. There has been no significant interval change. IMPRESSION: NEGATIVE There is no mammographic evidence of malignancy. A 1 year screening mammogram is recommended. This exam was interpreted at Station ID: [id number]. NOTE: For mammograms, a report in lay terms will be sent to the patient. Approximately 15% of breast malignancies will not be visualized mammographically. In the management of a palpable breast mass, a negative mammogram must not discourage biopsy of a clinically suspicious lesion. Electronically Signed By: Jesus Alberto Galo M.D., jr/marquita:10/14/2021 14:27:54 letter sent: Normal Exam ACR BI-RADS Category 1: Negative 3341F
== END ==
PROVIDERS: PCP Student in an Organized Health Care Education/Training Program; Referring Provider Student in an Organized Health Care Education/Training Program; Visit Provider Student in an Organized Health Care Education/Training Program
DX: Z12.31 Encounter for screening mammogram for malignant neoplasm of breast (principal)
CPT/HCPCS: 77063; 77067

== ENCOUNTER → 2021-10-14 12:46 | Outpatient (CLI) | payer MEDICARE, MEDICAID, SELFPAY ==
--- NOTE | 2021-10-14 12:48 | DI.RAD.S_ITS ---
PROCEDURE: XR HAND LT MIN 3V INDICATIONS: ARTHRITIS TECHNIQUE: 3 views of the hand acquired. COMPARISON: [facility], , HAND 3V LEFT, 01/26/2016, 12:16. FINDINGS: Bones: No acute fractures or dislocations. Carpal bones are normally aligned. No suspicious bony lesions. Moderate joint space narrowing is seen at the 1st metacarpophalangeal joint. No osseous erosions. Soft tissues: No suspicious soft tissue calcifications. IMPRESSION: [id number] 1st carpometacarpal joint osteoarthrosis. No radiographic signs of an inflammatory arthritis. Dictated by: Arnaldo Joaquin M.D. on 10/14/2021 at 14:53 Approved by: Arnaldo Joaquin M.D. on 10/14/2021 at 14:55
--- NOTE | 2021-10-14 12:49 | DI.RAD.S_ITS ---
PROCEDURE: XR HAND RT MIN 3V INDICATIONS: ARTHRITIS TECHNIQUE: 3 views of the hand acquired. COMPARISON: [facility], , HAND 3V RIGHT, 01/26/2016, 12:16. FINDINGS: Bones: No acute fractures or dislocations. Carpal bones are normally aligned. No suspicious bony lesions. Soft tissues: No suspicious soft tissue calcifications. IMPRESSION: No radiographic signs of an inflammatory arthritis. Dictated by: Arnaldo Joaquin M.D. on 10/14/2021 at 14:50 Approved by: Arnaldo Joaquin M.D. on 10/14/2021 at 14:51
== END ==
PROVIDERS: PCP Student in an Organized Health Care Education/Training Program; Referring Provider Physician Assistant Medical; Visit Provider Physician Assistant Medical
DX: M18.12 Unilateral primary osteoarthritis of first carpometacarpal joint, left hand (principal)
CPT/HCPCS: 73130

== ENCOUNTER → 2022-10-15 15:04 | Outpatient (CLI) | payer MEDICARE, MEDICAID, SELFPAY ==
--- NOTE | 2022-10-15 | DI.MG.S_ITS ---
BILATERAL DIGITAL SCREENING MAMMOGRAM 3D/2D WITH CAD: 10/15/2022 CLINICAL: Routine screening. Family history of breast cancer. Comparison is made to exams dated: 10/14/2021 mammogram, 05/09/2020 mammogram, and 04/23/2019 mammogram - [facility]. Both breasts are heterogeneously dense, which may obscure small masses (category c / 51-75% glandular tissue). Current study was also evaluated with a Computer Aided Detection (CAD) system. There is a 0.5 cm more prominent asymmetry in the left breast posterior depth lateral region seen on the craniocaudal view only. No other significant masses, calcifications, or other findings are seen in either breast. IMPRESSION: INCOMPLETE: NEEDS ADDITIONAL IMAGING EVALUATION The 0.5 cm asymmetry in the left breast is indeterminate. Additional views with possible ultrasound are recommended. Based on the Tyrer Cuzick model (a risk assessment model) the patient's lifetime risk is 7.8% and her 10 year risk is 3.1%. According to the ACR, ACS, and NCCN guidelines, an annual breast MRI exam along with mammogram is recommended if the patient's lifetime risk is 20% or greater. This exam was interpreted at Station ID: [id number]. NOTE: For mammograms, a report in lay terms will be sent to the patient. Approximately 15% of breast malignancies will not be visualized mammographically. In the management of a palpable breast mass, a negative mammogram must not discourage biopsy of a clinically suspicious lesion. Electronically Signed By: Caleb Chi M.D. lc/:10/15/2022 16:27:18 letter sent: Additional Imaging Needed ACR BI-RADS Category 0: Incomplete 3340F
== END ==
PROVIDERS: PCP Student in an Organized Health Care Education/Training Program; Referring Provider Student in an Organized Health Care Education/Training Program; Visit Provider Student in an Organized Health Care Education/Training Program
DX: Z12.31 Encounter for screening mammogram for malignant neoplasm of breast (principal); Z80.3 Family history of malignant neoplasm of breast
CPT/HCPCS: 77063; 77067

== ENCOUNTER → 2022-11-02 13:22 | Outpatient (CLI) | payer MEDICARE, MEDICAID, SELFPAY ==
--- NOTE | 2022-11-02 | DI.MG.S_ITS ---
UNILATERAL LEFT DIGITAL DIAGNOSTIC MAMMOGRAM 3D/2D WITH ADDITIONAL VIEWS: 11/02/2022 CLINICAL: Additional evaluation requested from prior study. Comparison is made to exams dated: 10/15/2022 mammogram, 10/14/2021 mammogram, and 05/09/2020 mammogram - . The left breast is heterogeneously dense, which may obscure small masses (category c / 51-75% glandular tissue). There is a 0.3 cm asymmetry in the left breast middle depth lateral region seen on the craniocaudal view only. No other significant masses or calcifications are seen in the breast. IMPRESSION: INCOMPLETE: NEEDS ADDITIONAL IMAGING EVALUATION The asymmetry in the left breast resembles a lymph node and is indeterminate. A targeted ultrasound is recommended and will immediately follow. Based on the Tyrer Cuzick model (a risk assessment model) the patient's lifetime risk is 7.8% and her 10 year risk is 3.1%. According to the ACR, ACS, and NCCN guidelines, an annual breast MRI exam along with mammogram is recommended if the patient's lifetime risk is 20% or greater. This exam was interpreted at Station ID: [id number]. NOTE: For mammograms, a report in lay terms will be sent to the patient. Approximately 15% of breast malignancies will not be visualized mammographically. In the management of a palpable breast mass, a negative mammogram must not discourage biopsy of a clinically suspicious lesion. Electronically Signed By: Win Means M.D. slc/:11/02/2022 14:45:39 ACR BI-RADS Category 0: Incomplete 3340F
--- NOTE | 2022-11-02 13:24 | DI.US.S_ITS ---
LIMITED ULTRASOUND OF LEFT BREAST AND AXILLA: 11/02/2022 CLINICAL: Patient returns today to evaluate a focal asymmetry in the left breast. Comparison is made to exams dated: 11/02/2022 mammogram, 10/14/2021 mammogram, 10/15/2022 mammogram, 05/09/2020 mammogram, 04/23/2019 mammogram, and 03/16/2018 mammogram - [facility]. Color flow and real-time ultrasound of the left breast 2-3 o'clock, and axilla regions were performed. Miranda scale images of the real-time examination were reviewed. There is a 0.4 cm x 0.3 cm x 0.2 cm lymph node in the left breast at 3 o'clock middle depth 4 cm from the nipple. This correlates with mammography findings. Color flow imaging demonstrates that there is an adjacent vascularity. Additional incidental adjacent small cysts which are benign. IMPRESSION: BENIGN There is no sonographic evidence of malignancy. The 0.4 cm lymph node in the left breast is benign. A 1 year screening mammogram is recommended. Exam findings were conveyed to the patient. This exam was interpreted at Station ID: [id number]. Electronically Signed By: Win Means M.D. slc/:11/02/2022 15:07:02 letter sent: Normal Exam Ultrasound BI-RADS: 2 Benign
== END ==
PROVIDERS: PCP Student in an Organized Health Care Education/Training Program; Referring Provider Student in an Organized Health Care Education/Training Program; Visit Provider Student in an Organized Health Care Education/Training Program
DX: R92.8 Other abnormal and inconclusive findings on diagnostic imaging of breast (principal)
CPT/HCPCS: 76642; 77065; G0279

== ENCOUNTER 2022-11-29 12:38 | Emergency (ER) | payer MEDICARE, MEDICAID, SELFPAY ==
[2022-11-29 12:46] VITALS: BP 155/96; PULSE 87; RESP 18; TEMP 36.9; O2SAT 97; BMI 24.0
--- NOTE | 2022-11-29 12:52 | DI.RAD.S_ITS ---
PROCEDURE: XR CHEST 1V INDICATIONS: chest pain TECHNIQUE: One view of the chest was acquired. COMPARISON: [facility], CR, XR CHEST 2V, 04/23/2021, 7:54. FINDINGS: Surgical changes and devices: None. Lungs and pleura: Lungs are clear. No pleural effusions or pneumothorax. Mediastinum: Mediastinal contours appear normal. Heart size is normal. Bones and chest wall: No suspicious bony lesions. Overlying soft tissues appear unremarkable. IMPRESSION: No acute pulmonary process. Dictated by: Federica Gallego M.D. on 11/29/2022 at 13:19 Approved by: Federica Gallego M.D. on 11/29/2022 at 13:19
[2022-11-29 13:12] LABS: Add Manual Diff / Slide Review NO; Basophils Absolute Auto 0 /uL (0-100); Basophils Percent Auto 0.5 % (0-2); Eosinophils Absolute Auto 200 /uL (0-450); Eosinophils Percent Auto 2.9 % (2-4); Hemoglobin 14.7 g/dL (12.0-16.0); Lymphocytes Absolute Auto 1700 /uL (1100-4500); Mean Corpuscular HGB Conc 34.2 % (30-36); Mean Corpuscular Hemoglobin 33.3 PG (26-34); Mean Corpuscular Volume 97.3 fL (80-100); Monocytes Absolute Auto 700 /uL (0-900); Monocytes Percent Auto 9.7 % (3-14); Neutrophils Absolute Auto 4400 /uL (1500-7000); Neutrophils Percent Auto 62.9 % (50-75); Platelet Count 285 X10^3/uL (150-400); Red Blood Cell Count 4.42 X10^6/uL (4.0-5.2); Red Cell Distribution Width 12.8 % (11.6-14.8)
[2022-11-29 13:24] LABS: Alanine Aminotransferase 23 IU/L (<35); Albumin 4.3 g/dL (3.5-5.0); Albumin Globulin Ratio 1.4 (1.0-2.8); Alkaline Phosphatase 71 U/L (38-126); Aspartate Aminotransferase 31 IU/L (14-36); BUN Creatinine Ratio 23.9 (6-22); Bilirubin Total 0.5 mg/dL (0.2-1.3); Blood Urea Nitrogen 16 mg/dL (7-17); Calcium 9.2 mg/dL (8.4-10.2); Carbon Dioxide 28 mmol/L (22-32); Chloride 103 mmol/L (98-107); Creatine Kinase 36 U/L (30-135); Estimated Glomerular Filt Rate > 60 mL/min (>60); Glucose 92 mg/dL (80-110); HEMOLYSIS < 15 (0-50); Lipase 92 U/L (23-300); Magnesium 1.9 mg/dL (1.6-2.3); Potassium 4.2 mmol/L (3.4-5.1); Sodium 138 mmol/L (137-145); Total Protein 7.3 g/dL (6.3-8.2)
[2022-11-29 13:26] LABS: PTT Partial Thromboplastin Tim 29 SECONDS (26-36)
[2022-11-29 13:35] LABS: Troponin I < 0.012 ng/mL (0.01-0.034)
[2022-11-29] MEDS: IBUPROFEN 400 MG TABLET 800 MG PO (13:53)
--- NOTE | 2022-11-29 14:32 | PC.NURSE ---
Patient reports cough for a few years, worse in the last year. Told to take Delsom by Dr Salguero. Patient reports chest pain starting Saturday morning, hx of shingles, on left side under breast. Worse with coughing and pressure. Patient is tender on palpation to left arm pit, no visible rashes, no palpable lump but patient recently had a mammogram and ultrasound and there is a benign mass in same location.
[2022-11-29 14:44] VITALS: BP 141/86; PULSE 80; RESP 19; O2SAT 96
--- NOTE | 2022-11-29 14:48 | ED.CHESTPAIN ---
HPI - Chest Pain <Flo Alvarado PA-C - Last Filed: 11/29/22 16:39> General Chief Complaint: Chest Pain Stated Complaint: L side in Chest pain, SOB, T-3 Time Seen by Provider: 11/29/22 14:31 Source: patient Mode of arrival: Ambulatory History of Present Illness HPI narrative: 61-year-old female with past medical history rheumatoid arthritis, chronic pain syndrome, anxiety presents to the ED with 3 days of pain under the right arm. Patient states that the pain spontaneously started when she was sleeping. Patient denies fever, chills, shortness of breath, chest pain, nausea, vomiting, lightheadedness, dizziness, syncope. Patient states that she was diagnosed with a lump in the breast sometime ago, has had a repeat mammogram and ultrasound last month. The lump was diagnosed as benign. Patient states that the pain is aggravated by movement of her arm. Patient is holding a small cushion under her right arm, and keeping the right arm close to her chest. Patient does have good range of motion of the right arm. Patient denies numbness, tingling, weakness. Related Data Previous Rx's Medication Instructions Recorded clonazepam 1 mg tablet (Klonopin) 1 mg PO DAILY PRN anxiety #30 tabs 10/18/22 ibuprofen 800 mg tablet See Rx Instructions .Route 10/18/22 .COMPLEX #30 tabs hydrocodone 5 mg-acetaminophen 325 1 - 2 tab PO DAILY PRN pain #45 11/17/22 mg tablet tabs Allergies Allergy/AdvReac Type Severity Reaction Status Date / Time gabapentin AdvReac Intermediate sedation Verified 11/29/22 12:50 codeine AdvReac Mild NAUSEA Verified 11/29/22 12:50 Sulfa (Sulfonamide AdvReac Mild MOUTH SORES Verified 11/29/22 12:50 Antibiotics) magnesium AdvReac sore mouth Verified 11/29/22 12:50 Review of Systems <Flo Alvarado PA-C - Last Filed: 11/29/22 16:39> Review of Systems ROS Unobtainable: All systems reviewed & are unremarkable except as noted in HPI and below Constitutional Constitutional: Denies chills, Denies fatigue, Denies fever(s), Denies frequent falls, Denies lethargy and Denies weakness Eyes Eyes: Denies change in vision, Denies eye discharge, Denies irritation and Denies loss of vision ENT Ears, Nose, Mouth, and Throat: Denies change in voice, Denies dizziness, Denies neck pain, Denies sore throat and Denies throat swelling Cardiovascular Cardiovascular: Denies chest pain, Denies irregular heart rhythm, Denies lightheadedness, Denies palpitations, Denies dyspnea, Denies dyspnea on exertion and Denies orthopnea Respiratory Respiratory: Denies cough, Denies dyspnea, Denies dyspnea on exertion and Denies wheezing Gastrointestinal Gastrointestinal: Denies abdominal pain, Denies change in bowel habits, Denies diarrhea, Denies nausea and Denies vomiting Genitourinary Genitourinary: Denies hematuria, Denies flank pain, Denies urinary incontinence and Denies urinary urgency Musculoskeletal Musculoskeletal: Denies back pain, Denies muscle weakness, Denies neck pain, Denies numbness and Denies tingling Comments: Pain under the right armpit Integumentary/Breasts Skin/Breast: Denies pruritus, Denies erythema, Denies rash and Denies wounds Neurologic Neurologic: Denies behavioral changes, Denies confusion, Denies dizziness, Denies frequent falls, Denies loss of vision, Denies numbness, Denies tingling and Denies weakness Psychiatric Psychiatric: Denies anxiety, Denies behavioral changes, Denies confusion, Denies depression, Denies homicidal ideation and Denies suicidal ideation Endocrine Endocrine: Denies fatigue, Denies flushing and Denies palpitations Hematologic/Lymphatic Hematologic/Lymphatic: Denies easy bruising Allergic/Immunologic Allergic/Immunologic: Denies urticaria, Denies throat swelling and Denies wheezing Patient History <Flo Alvarado PA-C - Last Filed: 11/29/22 16:39> Medical History Herpes genitalis Menometrorrhagia Rheumatoid arthritis (2001) Rheumatoid nodule Surgical History Status post breast biopsy (2007) Status post delivery (1979) Status post delivery (1986) Status post delivery (1989) Family History Grandmother Rheumatoid arthritis Mother No problems noted. Social History Smoking Status: Current every day smoker alcohol intake: current Smoking Status: Current every day smoker alcohol intake frequency: a few times a week Alcohol type: beer Substance Use Type: does not use Exam <Flo Alvarado PA-C - Last Filed: 11/29/22 16:39> Narrative Exam Narrative: Const General:?cooperative, healthy appearing and comfortable [facility] Head:?normal to inspection Ears:?hearing grossly normal bilaterally Nose:?external nose normal Face and sinus:?normal facial exam and sinuses nontender Mouth:?oral mucosae normal Throat:?posterior oropharynx normal Eyes General:?appearance normal, both eyes and all related structures Neck Neck:?normal visual inspection and no lymphadenopathy noted Resp Effort & Inspection:?normal respiratory effort Auscultation:?clear to auscultation bilaterally Cardio Rate:?regular rate Rhythm:?regular rhythm Musculoskeletal There is a spot just beneath the right armpit that seems tender to palpation, however no palpable lump or deformity. No other deformities noted. No rashes. Skin is intact. Neuro General:?patient alert, patient awake and patient oriented x3 Initial Vital Signs Initial Vital Signs: Vital Signs Temperature 98.4 F 11/29/22 12:46 Pulse Rate 87 11/29/22 12:46 Respiratory Rate 18 11/29/22 12:46 Blood Pressure 155/96 H 11/29/22 12:46 Pulse Oximetry 97 11/29/22 12:46 Oxygen Delivery Method Room Air 11/29/22 12:46 <Andres Shultz MD - Last Filed: 11/30/22 07:10> Initial Vital Signs Initial Vital Signs: Vital Signs Temperature 98.4 F 11/29/22 12:46 Pulse Rate 87 11/29/22 12:46 Respiratory Rate 18 11/29/22 12:46 Blood Pressure 155/96 H 11/29/22 12:46 Pulse Oximetry 97 11/29/22 12:46 Oxygen Delivery Method Room Air 11/29/22 12:46 Course <Flo Alvarado PA-C - Last Filed: 11/29/22 16:39> Orders Ordered: Discontinued Medications Aspirin (Aspirin 81 Mg Chew Tab) 324 mg PO NOW ONE Stop: 11/29/22 12:53 Last Admin: 11/29/22 13:12 Dose: Not Given Documented By: SAIS Ibuprofen (Ibuprofen 400 Mg Tablet) 800 mg PO NOW ONE Stop: 11/29/22 13:50 Last Admin: 11/29/22 13:53 Dose: 800 mg Documented By: CTS Vital Signs Vital signs: Vital Signs - 8 hr 11/29/22 12:46 11/29/22 14:44 Temperature 98.4 F Pulse Rate 87 80 Respiratory Rate 18 19 Blood Pressure 155/96 H 141/86 H Pulse Oximetry 97 96 Oxygen Delivery Method Room Air Room Air <Andres Shultz MD - Last Filed: 11/30/22 07:10> Orders Ordered: Discontinued Medications Aspirin (Aspirin 81 Mg Chew Tab) 324 mg PO NOW ONE Stop: 11/29/22 12:53 Last Admin: 11/29/22 13:12 Dose: Not Given Documented By: PORFIRIO Ibuprofen (Ibuprofen 400 Mg Tablet) 800 mg PO NOW ONE Stop: 11/29/22 13:50 Last Admin: 11/29/22 13:53 Dose: 800 mg Documented By: CTS Vital Signs Vital signs: Vital Signs - 8 hr 11/29/22 12:46 11/29/22 14:44 Temperature 98.4 F Pulse Rate 87 80 Respiratory Rate 18 19 Blood Pressure 155/96 H 141/86 H Pulse Oximetry 97 96 Oxygen Delivery Method Room Air Room Air MDM - Chest Pain <Flo Alvarado PA-C - Last Filed: 11/29/22 16:39> Lab Data 11/29/22 12:58 11/29/22 12:58 Labs: Lab Results 11/29/22 11/29/22 11/29/22 Range/Units 12:58 12:58 12:58 WBC 7.0 (4.5-11.0) X10^3/uL RBC 4.42 (4.0-5.2) X10^6/uL Hgb 14.7 (12.0-16.0) g/dL Hct 43.0 (36-46) % MCV 97.3 (80-100) fL MCH 33.3 (26-34) PG MCHC 34.2 (30-36) % RDW 12.8 (11.6-14.8) % Plt Count 285 (150-400) X10^3/uL Neut % (Auto) 62.9 (50-75) % Lymph % (Auto) 24.0 L (25-40) % Tift % (Auto) 9.7 (3-14) % Eos % (Auto) 2.9 (2-4) % Baso % (Auto) 0.5 (0-2) % Neut # (Auto) 4400 (1913-3913) /uL Lymph # (Auto) 1700 (6552-8810) /uL Tift # (Auto) 700 (0-900) /uL Eos # (Auto) 200 (0-450) /uL Baso # (Auto) 0 (0-100) /uL PT 11.0 (10.1-12.7) SECONDS INR 1.0 (0.9-1.3) APTT 29 (26-36) SECONDS Sodium 138 (137-145) mmol/L Potassium 4.2 (3.4-5.1) mmol/L Chloride 103 (98-107) mmol/L Carbon Dioxide 28 (22-32) mmol/L BUN 16 (7-17) mg/dL Creatinine 0.67 (0.52-1.04) mg/dL Estimated GFR > 60 (>60) mL/min BUN/Creatinine Ratio 23.9 H (6-22) Glucose 92 (80-110) mg/dL Calcium 9.2 (8.4-10.2) mg/dL Magnesium 1.9 (1.6-2.3) mg/dL Total Bilirubin 0.5 (0.2-1.3) mg/dL AST 31 (14-36) IU/L ALT 23 (<35) IU/L Alkaline Phosphatase 71 (38-126) U/L Total Creatine Kinase 36 (30-135) U/L CK-MB (CK-2) TNP CK-MB (CK-2) Rel Index TNP Troponin I < 0.012 (0.01-0.034) ng/mL Total Protein 7.3 (6.3-8.2) g/dL Albumin 4.3 (3.5-5.0) g/dL Globulin 3.0 (1.7-4.1) g/dL Albumin/Globulin Ratio 1.4 (1.0-2.8) Lipase 92 (23-300) U/L MDM Narrative Medical decision making narrative: 61-year-old female with past medical history rheumatoid arthritis, chronic pain syndrome, anxiety presents to the ED with 3 days of pain under the right arm. Concern for musculoskeletal sprain/strain versus other. Recommend Tylenol, ibuprofen, lidocaine patches, heat packs. Recommend follow-up with PCP. ED return precautions were discussed with patient. Patient verbalized understanding. <Andres Shultz MD - Last Filed: 11/30/22 07:10> Lab Data Labs: Lab Results 11/29/22 11/29/22 11/29/22 Range/Units 12:58 12:58 12:58 WBC 7.0 (4.5-11.0) X10^3/uL RBC 4.42 (4.0-5.2) X10^6/uL Hgb 14.7 (12.0-16.0) g/dL Hct 43.0 (36-46) % MCV 97.3 (80-100) fL MCH 33.3 (26-34) PG MCHC 34.2 (30-36) % RDW 12.8 (11.6-14.8) % Plt Count 285 (150-400) X10^3/uL Neut % (Auto) 62.9 (50-75) % Lymph % (Auto) 24.0 L (25-40) % Tift % (Auto) 9.7 (3-14) % Eos % (Auto) 2.9 (2-4) % Baso % (Auto) 0.5 (0-2) % Neut # (Auto) 4400 (4420-7940) /uL Lymph # (Auto) 1700 (1692-2246) /uL Tift # (Auto) 700 (0-900) /uL Eos # (Auto) 200 (0-450) /uL Baso # (Auto) 0 (0-100) /uL PT 11.0 (10.1-12.7) SECONDS INR 1.0 (0.9-1.3) APTT 29 (26-36) SECONDS Sodium 138 (137-145) mmol/L Potassium 4.2 (3.4-5.1) mmol/L Chloride 103 (98-107) mmol/L Carbon Dioxide 28 (22-32) mmol/L BUN 16 (7-17) mg/dL Creatinine 0.67 (0.52-1.04) mg/dL Estimated GFR > 60 (>60) mL/min BUN/Creatinine Ratio 23.9 H (6-22) Glucose 92 (80-110) mg/dL Calcium 9.2 (8.4-10.2) mg/dL Magnesium 1.9 (1.6-2.3) mg/dL Total Bilirubin 0.5 (0.2-1.3) mg/dL AST 31 (14-36) IU/L ALT 23 (<35) IU/L Alkaline Phosphatase 71 (38-126) U/L Total Creatine Kinase 36 (30-135) U/L CK-MB (CK-2) TNP CK-MB (CK-2) Rel Index TNP Troponin I < 0.012 (0.01-0.034) ng/mL Total Protein 7.3 (6.3-8.2) g/dL Albumin 4.3 (3.5-5.0) g/dL Globulin 3.0 (1.7-4.1) g/dL Albumin/Globulin Ratio 1.4 (1.0-2.8) Lipase 92 (23-300) U/L Discharge Plan Departure Patient Disposition: Home Clinical Impression: Atypical chest pain Instructions: DI for Atypical Chest Pain Activity Restrictions/Additional Instructions: You were evaluated in the ED today for pain under the left arm. Your symptoms are likely due to a musculoskeletal sprain/strain. You may apply lidocaine patches, heat packs, take 800 mg of ibuprofen 3 times a day for the pain and inflammation. Please follow-up with your PCP as soon as possible for further evaluation. Return to the ED if you have any chest pain, trouble breathing. Prescriptions: No Action clonazepam [Klonopin] 1 mg tablet 1 mg PO DAILY PRN (Reason: anxiety) Qty: 30 4RF ibuprofen 800 mg tablet See Rx Instructions .ROUTE .COMPLEX Qty: 30 0RF Dose Instruction: TAKE 1 TABLET BY MOUTH EVERY 8 HOURS NEEDED FOR FEVER OR PAIN Rx Instructions: TAKE 1 TABLET BY MOUTH EVERY 8 HOURS NEEDED FOR FEVER OR PAIN hydrocodone-acetaminophen 5-325 mg tablet 1 - 2 tab PO DAILY PRN (Reason: pain) Qty: 45 0RF Rx Instructions: EXEMPT Referrals: Darren Salguero MD [Primary Care Provider] - Stand Alone Forms: Patient Portal/API <Andres Shultz MD - Last Filed: 11/30/22 07:10> Cosign ED Attending Cosnajmaature Attestation: I was immediately available in the department for consultation. ?This documentation has been reviewed and I agree with assessment and plan. Supervised by Andres Shultz MD
== END 2022-11-29 14:46 | disposition home or self-care (01) ==
PROVIDERS: Emergency Medicine; Emergency Provider Student in an Organized Health Care Education/Training Program; PCP Student in an Organized Health Care Education/Training Program
DX: R07.89 Other chest pain (principal)
CPT/HCPCS: 36415; 71045; 80053; 82550; 83690; 83735; 84484; 85025; 85610; 85730; 93005; 99284

== ENCOUNTER → 2022-12-02 16:10 | Outpatient (CLI) | payer MEDICARE, MEDICAID, SELFPAY ==
--- NOTE | 2022-12-02 16:12 | DI.RAD.S_ITS ---
PROCEDURE: XR RIBS LT MIN 3V W CXR1V INDICATIONS: marked rib pain, musculoskel working dx, TECHNIQUE: 2 views of the left ribs were acquired, along with a single view chest. COMPARISON: [facility], CR, XR CHEST 1V, 11/29/2022, 13:03. [facility], CR, XR CHEST 2V, 04/23/2021, 7:54. FINDINGS: Surgical changes and devices: None. Bones and chest wall: No fractures or dislocations. No suspicious bony lesions. Overlying soft tissues appear unremarkable. Lungs and pleura: Acute fractures involving the left 5th and 6 posterior lateral ribs. Chronic healed fracture deformities involving the left 7th and 8th posterior lateral ribs. No pleural effusions or pneumothorax. Lungs appear clear. Mediastinum: Mediastinal contours appear normal. Heart size is normal. IMPRESSION: 1. Mildly displaced left 5th and 6th posterior lateral rib fractures. 2. Chronic fracture deformities of the left 7th and 8th posterior lateral ribs. Dictated by: Jose Gallegos [facility] Interpreted: Gregorio Solano MD on 12/02/2022 at 16:27 Approved by: Gregorio Solano M.D. on 12/02/2022 at 17:39
== END ==
PROVIDERS: PCP Pediatrics; Referring Provider Pediatrics; Visit Provider Pediatrics
DX: S22.42XA Multiple fractures of ribs, left side, initial encounter for closed fracture (principal); S22.42XS Multiple fractures of ribs, left side, sequela; R07.89 Other chest pain; F11.20 Opioid dependence, uncomplicated; F41.9 Anxiety disorder, unspecified; G89.4 Chronic pain syndrome
CPT/HCPCS: 71101

== ENCOUNTER → 2023-01-10 11:31 | Outpatient (CLI) | payer MEDICARE, MEDICAID, SELFPAY ==
--- NOTE | 2023-01-10 | DI.US.S_ITS ---
PROCEDURE: US ABDOMEN LIMITED INDICATIONS: EPIGASTRIC PAIN TECHNIQUE: Real-time scanning was performed of the abdominal and retroperitoneal organs, with image documentation. COMPARISON: [facility], , US ABDOMEN LIMITED, 04/23/2021, 8:04. FINDINGS: Liver: Small cluster of simple cysts noted in the left lobe posteriorly, largest measures 2.2 x 1.7 x 2.6 cm. Previously noted right hepatic cyst not demonstrated currently Gallbladder: Sonolucent without cholelithiasis. No gallbladder wall thickening. No pericholecystic fluid or Don's sign. Common Bile Duct: 7 mm. Pancreas: Unremarkable as visualized IMPRESSION: 1. Simple hepatic cysts, similar to the prior Approved by: Keshawn Katz M.D. on 01/10/2023 at 19:26
--- NOTE | 2023-01-10 11:56 | DI.DEXA.S_ITS ---
Bone Density Report Name: CLAUDIA LEARY Age: 62 Sex: Female Ethnicity: White Date of : 1960 Indication: postmenopausal; screening for osteoporosis; prior fracture; rheumatoid arthritis; Referring Provider: FLIP KHAN Study: Bone densitometry was performed. Exam Date: January 10, 2023 Accession number: [id number] Bone Density: Region BMD T-score Z-score Classification AP Spine(L1-L4) 0.850 -1.8 -0.3 Osteopenia Femoral Neck (Left) 0.614 -2.1 -0.8 Osteopenia Total Hip (Left) 0.758 -1.5 -0.5 Osteopenia Femoral Neck (Right) 0.582 -2.4 -1.1 Osteopenia Total Hip (Right) 0.707 -1.9 -0.9 Osteopenia Total Hip Mean 0.733 -1.7 -0.7 Osteopenia World Health Organization criteria for BMD impression classify patients as: Normal (T-score at or above -1.0), Osteopenia (T-score between -1.0 and -2.5), or Osteoporosis (T-score at or below -2.5). 10-year Fracture Risk(1): Major Osteoporotic Fracture 24% Hip Fracture 7.7% Reported Risk Factors: [place] (), Neck BMD=0.582, BMI=22.7, previous fracture, smoking, rheumatoid arthritis (1) FRAX(R) Version 3.08. Fracture probability calculated for an untreated patient. Fracture probability may be lower if the patient has received treatment. Impression: The patient has low bone mass, based on the Right Femoral Neck T-score. The patient has an estimated ten-year risk of hip fracture of 7.7% and an estimated ten-year risk of major fracture of 24%, based on the WHO FRAX algorithm. The patient has risk factors, including: smoking, previous fracture. Discussion: BONE DENSITY IS LOW AT ONE OR MORE SKELETAL SITES. THE PATIENT'S BMD AND CLINICAL RISK FACTORS CONTRIBUTE TO THIS PATIENT'S HIGH RISK OF FRACTURE. This patient's lowest T-score is low at one or more skeletal sites. It meets the World Health Organization's (WHO) criteria for ?low bone mass? (T-score between -1.0 and -2.5). The patient's 10-year risk of hip fracture and 10 year risk of a major osteoporotic fracture as calculated by FRAX exceeds the threshold where pharmacological therapy is recommended by the National Osteoporosis Foundation (NOF). However, all treatment decisions require clinical judgment and consideration of individual patient factors, including patient preferences, comorbidities, previous drug use, risk factors not captured in the FRAX model (e.g., frailty, falls, vitamin D deficiency, increased bone turnover, interval significant decline in bone density) and possible under or overestimation of fracture risk by FRAX. The patient should follow a healthful lifestyle (good nutrition with adequate calcium and vitamin D, and appropriate weight-bearing exercise). Follow-Up: Consider a repeat BMD and Vertebral Fracture Assessment (VFA) exam in 2 years or sooner if medically necessary, to reassess this patient's status. Reported by: MARTA BERUMEN M.D on 01/10/2023 12:08:00 PM.
== END ==
PROVIDERS: PCP Pediatrics; Referring Provider Pediatrics; Visit Provider Pediatrics
DX: S22.49XA Multiple fractures of ribs, unspecified side, initial encounter for closed fracture (principal); R07.89 Other chest pain; R10.11 Right upper quadrant pain; K76.89 Other specified diseases of liver; M81.0 Age-related osteoporosis without current pathological fracture; Z13.820 Encounter for screening for osteoporosis; M85.851 Other specified disorders of bone density and structure, right thigh; Z78.0 Asymptomatic menopausal state
CPT/HCPCS: 76705; 77080

== ENCOUNTER → 2023-07-20 13:16 | Outpatient (CLI) | payer MEDICARE, MEDICAID, SELFPAY | LOC: RESP 13:17 | PROVIDERS: PCP Family Medicine; Referring Provider Family Medicine; Visit Provider Family Medicine | DX: F17.200 Nicotine dependence, unspecified, uncomplicated (principal); R05.3 Chronic cough; J98.8 Other specified respiratory disorders | CPT/HCPCS: 94060 ==

== ENCOUNTER → 2023-10-27 11:39 | Outpatient (CLI) | payer MEDICARE, MEDICAID, SELFPAY ==
--- NOTE | 2023-10-27 11:40 | DI.MG.S_ITS ---
BILATERAL DIGITAL SCREENING MAMMOGRAM 3D/2D WITH CAD: 10/27/2023 CLINICAL: Routine screening. Family history of breast cancer. Comparison is made to exams dated: 10/15/2022 mammogram, 10/14/2021 mammogram, and 05/09/2020 mammogram - [facility]. Both breasts are heterogeneously dense, which may obscure small masses (category c / 51-75% glandular tissue). Current study was also evaluated with a Computer Aided Detection (CAD) system. No significant masses, calcifications, or other findings are seen in either breast. There has been no significant interval change. IMPRESSION: NEGATIVE There is no mammographic evidence of malignancy. A 1 year screening mammogram is recommended. Based on the Tyrer Cuzick model (a risk assessment model) the patient's lifetime risk is 7.6% and her 10 year risk is 3.2%. According to the ACR, ACS, and NCCN guidelines, an annual breast MRI exam along with mammogram is recommended if the patient's lifetime risk is 20% or greater. This exam was interpreted at Station ID: [id number]. NOTE: For mammograms, a report in lay terms will be sent to the patient. Approximately 15% of breast malignancies will not be visualized mammographically. In the management of a palpable breast mass, a negative mammogram must not discourage biopsy of a clinically suspicious lesion. Electronically Signed By: Mita daniels/marquita:10/27/2023 18:59:12 letter sent: Normal Exam ACR BI-RADS Category 1: Negative [id number]
== END ==
PROVIDERS: PCP Family Medicine; Referring Provider Family Medicine; Visit Provider Family Medicine
DX: Z12.31 Encounter for screening mammogram for malignant neoplasm of breast (principal); R92.333 Mammographic heterogeneous density, bilateral breasts
CPT/HCPCS: 77063; 77067

== ENCOUNTER → 2024-02-15 09:36 | Outpatient (CLI) | payer MEDICARE, MEDICAID, SELFPAY ==
[2024-02-15 11:52] LABS: Hematocrit 44.2 % (36-46); Hemoglobin 15.2 g/dL (12.0-16.0); Mean Corpuscular HGB Conc 34.3 % (30-36); Mean Corpuscular Volume 96.3 fL (80-100); Platelet Count 317 X10^3/uL (150-400); Red Blood Cell Count 4.59 X10^6/uL (4.0-5.2); Red Cell Distribution Width 12.4 % (11.6-14.8)
[2024-02-15 12:37] LABS: Alanine Aminotransferase 18 IU/L (<35); Albumin 4.5 g/dL (3.5-5.0); Albumin Globulin Ratio 1.4 (1.0-2.8); Alkaline Phosphatase 76 U/L (38-126); Aspartate Aminotransferase 29 IU/L (14-36); BUN Creatinine Ratio 17.6 (6-22); Bilirubin Total 0.7 mg/dL (0.2-1.3); Blood Urea Nitrogen 13 mg/dL (7-17); Carbon Dioxide 27 mmol/L (22-32); Chloride 104 mmol/L (98-107); Cholesterol 219 mg/dL (140-199); Estimated Glomerular Filt Rate > 60 mL/min (>60); Globulin 3.2 g/dL (1.7-4.1); Glucose 55 mg/dL (80-110); HDL Cholesterol 66 mg/dL (40-60); HEMOLYSIS 15 (0-50); LDL Cholesterol Calculated 106 mg/dL (<100); Potassium 4.3 mmol/L (3.4-5.1); Sodium 138 mmol/L (137-145); Total Protein 7.7 g/dL (6.3-8.2); Triglycerides 234 mg/dL (35-150)
[2024-02-15 13:44] LABS: HIV 1 & 2 Ab/Ag 4th Gen Combo NEGATIVE (NEGATIVE); Hep C Virus Ab w/Reflex Quant NEGATIVE s/c (NEGATIVE)
== END ==
PROVIDERS: PCP Family Medicine; Referring Provider Family Medicine; Visit Provider Family Medicine
DX: Z00.00 Encounter for general adult medical examination without abnormal findings (principal); E78.2 Mixed hyperlipidemia; Z11.59 Encounter for screening for other viral diseases; Z11.4 Encounter for screening for human immunodeficiency virus [HIV]; J44.9 Chronic obstructive pulmonary disease, unspecified; F17.200 Nicotine dependence, unspecified, uncomplicated
CPT/HCPCS: 36415; 80053; 80061; 85027; 86803; 87389